=== PATIENT | female | born 1985 | race African-American/Black ===

== ENCOUNTER 2016-03-22 09:41 | Emergency (ER) | payer OTHER ==
[~2016-03-22] VITALS: Ht 167.6 cm; Wt 109.8 kg
[~2016-03-22 09:41] MED LIST: ACET-704 PO; BENZ100C PO; CYCL10TA2 PO; DICY10CA3 PO; IBUP200T58 PO; MAGN2400 PO; NAPR220T70 PO; NAPR375T3 PO; ONDA4TAB10 SL; PRED50TA PO; PROAIR RESPICL90 MCG IH; WARF10TA PO
[2016-03-22] MEDS ORDERED: IBUPROFEN 800 MG TABLET. PO ONE (10:15)
[2016-03-22] MEDS ORDERED: ALBUTEROL SULFATE 2.5 MG/3 ML NEBU. NEB ONE (10:30)
--- NOTE | 2016-03-22 10:45 | EKG ---
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
--- NOTE | 2016-03-22 10:47 | RAD ---
Exam performed: One view chest. Indication: cough, fever Date of Service: 03/22/2016 12:14 PM Comparison: Chest from 02/24/16. Single AP upright portable view chest findings: Cardiomediastinal silhouette is within limits of normal. No acute infiltrates, effusion or pneumothorax is detected. The bony structures are normal. Impression: No acute cardiopulmonary process is detected.
[2016-03-22 11:01] LABS: NEGATIVE OBC STREP NEG; POSITIVE OBC STREP POS
[2016-03-22 11:06] LABS: OBC FLU VALID
[2016-03-22 11:44] LABS: NEG OBC UR NEG; POS OBC UR POS
[2016-03-22 11:48] LABS: BILIRUBIN,URINE NEGATIVE (NEG); GLUCOSE,URINE NEGATIVE (NEG); NITRITE,URINE NEGATIVE (NEG); PROTEIN,URINE NEGATIVE (NEG-TRACE)
[2016-03-22 11:59] LABS: BACTERIA,URINE 0 /HPF (0-FEW); RBC,URINE OCC /HPF (0-2); SQUAMOUS EPITHELIAL CELL,UR MANY /LPF; WBC,URINE 0 /HPF (0-4)
--- NOTE | 2016-03-22 12:06 | PHYS DOC ---
Past Medical History Past Medical History: Bronchitis, Other Additional Past Medical Histor: heart murmur, lung "blood clots" Past Surgical History: Additional Information: Quit 03/21/16 Alcohol Use: Occasionally Drug Use: None Adult General Chief Complaint Chief Complaint: COUGH [facility] HPI Patient is a 30 year old female who reports was seen here two weeks ago for bronchitis and was feeling better and then symptoms started to return two days ago. C/o cough, body aches, fever, nasal congestion and sore throat. No interventions prior to arrival. Review of Systems Review of Systems Constitutional: Intermittent fever two days. Eyes: Denies change in visual acuity, redness, or eye pain HENT: Nasal congesiton, sore throat two days Respiratory: Denies shortness of breath. COugh Cardiovascular: No additional information not addressed in HPI [] GI: Denies abdominal pain, nausea, vomiting, bloody stools or diarrhea : Denies dysuria or hematuria Musculoskeletal: Denies back pain or joint pain Integument: Denies rash or skin lesions Neurologic: Denies headache, focal weakness or sensory changes Endocrine: Denies polyuria or polydipsia [] Current Medications Current Medications Current Medications Medications (Trade) Dose Ordered Sig/Ryley Start Time Stop Time Status Last Admin Dose Admin Albuterol Sulfate (Ventolin Neb Soln) 2.5 mg 1X ONCE 03/22/16 10:30 03/22/16 10:31 DC 03/22/16 10:45 2.5 MG Ibuprofen (Motrin) 800 mg 1X ONCE 03/22/16 10:15 03/22/16 10:17 DC 03/22/16 10:54 800 MG Allergies Allergies Allergies Coded Allergies Type Severity Reaction Last Updated Verified No Known Drug Allergies 06/07/13 No Physical Exam Physical Exam Constitutional: Well developed, well nourished, no acute distress, non-toxic appearance. HENT: Normocephalic, atraumatic, bilateral external ears normal, no oral exudates. Clear nasal drainage bilateral nares. Oropharynx erythematous without exudates. Eyes: PERRLA, EOMI, conjunctiva normal, no discharge. Neck: Normal range of motion, no tenderness, supple, no stridor. Cardiovascular:Heart rate regular rhythm, no murmur Lungs & Thorax: Bilateral breath sounds clear to auscultation Abdomen: Bowel sounds normal, soft, no tenderness, no masses, no pulsatile masses. Skin: Warm, dry, no erythema, no rash. Back: No tenderness, no CVA tenderness. Extremities: No tenderness, no cyanosis, no clubbing, ROM intact, no edema. Neurologic: Alert and oriented X 3, normal motor function, normal sensory function, no focal deficits noted. Psychologic: Affect normal, judgement normal, mood normal. [] Current Patient Data Vital Signs Vital Signs Date Time Temp Pulse Resp B/P Pulse Ox O2 Delivery O2 Flow Rate FiO2 03/22/16 12:14 114 18 111/65 95 Room Air 03/22/16 11:27 100.2 100.2 Lab Values Laboratory Tests Test 03/22/16 10:29 03/22/16 11:29 Influenza Type A Antigen Negative (NEGATIVE) Influenza Type B Antigen Negative (NEGATIVE) Group A Streptococcus Rapid Negative (NEGATIVE) Urine Collection Type Unknown Urine Color Yellow Urine Clarity Cloudy Urine pH 6.0 Urine Specific [place] 1.025 Urine Protein Negativemg/dL (NEG-TRACE) Urine Glucose (UA) Negativemg/dL (NEG) Urine Ketones (Stick) Negativemg/dL (NEG) Urine Blood Trace (NEG) Urine Nitrite Negative (NEG) Urine Bilirubin Negative (NEG) Urine Urobilinogen Dipstick 1.0mg/dL (0.2 mg/dL) Urine Leukocyte Esterase Negative (NEG) Urine RBC Occ/HPF (0-2) Urine WBC 0/HPF (0-4) Urine Squamous Epithelial Cells Many/LPF Urine Bacteria 0/HPF (0-FEW) Urine Test Negative (NEG) EKG EKG [] Radiology/Procedures Radiology/Procedures [] Impressions: 1. Bronchitis 2. Viral illness Course & Med Decision Making Course & Med Decision Making Pertinent Labs and Imaging studies reviewed. (See chart for details) Temp 100.0 at discharge, HR 107, RA sat 96%. Flu, strep, Xray, UA negative for acute findings. Cough improved with neb tx. Williams Disclaimer Williams Disclaimer This electronic medical record was generated, in whole or in part, using a voice recognition dictation system. Departure Departure Impression: Primary Impression: Bronchitis, acute Disposition: 01 HOME, SELF-CARE Condition: STABLE Referrals: UNKNOWN PCP NAME (PCP) Patient Instructions: Acute Bronchitis, [id number]-Pvyu Additional Instructions: Take all medication as prescribed. Follow up with primary doctor in 1-2 days. Return if problems or concerns Scripts Albuterol Sulfate (Proair Hfa Inhaler)8.5 Gm Hfa.aer.ad1 Puff INH PRN Q6HRS PRN wheezing 7 Days Ref 0 Prov:DOMINGO JACK APRN 03/22/16 Guaifenesin/Codeine Phosphate (Guaifenesin-Codeine Syrup)118 Ml Liquid5 Ml PO Q6HRS #120 ML Prov:DOMINGO JACK APRN 03/22/16 Benzonatate (Tessalon Perle)100 Mg Capsule1 Cap PO TID #21 CAP Prov:DOMINGO JACK APRN 03/22/16 DOMINGO JACK APRN Mar 22, 2016 12:06
[2016-03-22 12:14] VITALS: BP 111/65
[2016-03-22] MEDS ORDERED: BENZ100C PO (12:14)
[2016-03-22] MEDS ORDERED: GUAI118L13 PO (12:14)
[2016-03-22] MEDS ORDERED: PROAIR HFA8.5 GM INH (12:37)
== END 2016-03-22 12:37 | disposition home or self-care (01) ==
LOC: ER 09:41
DX: J20.9 Acute bronchitis, unspecified (principal); Z87.891 Personal history of nicotine dependence
CPT/HCPCS: 71010; 81001; 81025; 87070; 87804; 87880; 93005; 94640; 99285-25

== ENCOUNTER 2016-10-26 07:50 | Emergency (ER) | payer OTHER ==
[~2016-10-26] VITALS: Ht 170.2 cm; Wt 113.4 kg
[~2016-10-26 07:50] MED LIST changes: +GUAI118L13 PO; +NAPR-695 PO; -NAPR375T3 PO; +PROAIR HFA8.5 GM INH; -WARF10TA PO; +WARF10TA45 PO
[2016-10-26 08:41] VITALS: BP 156/99
--- NOTE | 2016-10-26 09:00 | PHYS DOC ---
Past Medical History Past Medical History: Bronchitis, Other Additional Past Medical Histor: heart murmur, lung "blood clots" Past Surgical History: Alcohol Use: Occasionally Drug Use: None Adult General Chief Complaint Chief Complaint: SORE THROAT HPI HPI Patient is a 31 year old female presents to the emergency department with a history of sore throat, congestion with a yellow to mucus productive cough. Patient also states she has brown vaginal discharge, however finished her menstrual cycle last Monday. She denies fever, chills, nausea vomiting and diarrhea for me. Patient states she thinks she is dehydrated because every time she goes outside she gets light headed and dizzy and feels like she is going to pass out. She denies passing out. Patient denies concerns for STD. Review of Systems Review of Systems Constitutional: Denies fever or chills [] Eyes: Denies change in visual acuity, redness, or eye pain [] HENT: nasal congestion and sore throat [] Respiratory: cough denies shortness of breath [] Cardiovascular: No additional information not addressed in HPI [] GI: Denies abdominal pain, nausea, vomiting, bloody stools or diarrhea [] : Denies dysuria or hematuria. C/o vaginal discharge, brown Musculoskeletal: Denies back pain or joint pain [] Integument: Denies rash or skin lesions [] Neurologic: Denies headache, focal weakness or sensory changes [] Endocrine: Denies polyuria or polydipsia [] Allergies Allergies Allergies Coded Allergies Type Severity Reaction Last Updated Verified No Known Drug Allergies 06/07/13 No Physical Exam Physical Exam Constitutional: Well developed, well nourished, no acute distress, non-toxic appearance. [] HENT: Normocephalic, atraumatic, bilateral external ears normal, oropharynx moist, no oral exudates, nose normal. Bilateral TM normal. throat with redness, no post nasal drip noted, no anterior cervical adenopathy noted. Eyes: PERRLA, EOMI, conjunctiva normal, no discharge. [] Neck: Normal range of motion, no tenderness, supple, no stridor. [] Cardiovascular:Heart rate regular rhythm, no murmur [] Lungs & Thorax: Bilateral breath sounds clear to auscultation [] Skin: Warm, dry, no erythema, no rash. [] Back: No tenderness Extremities: No tenderness, no cyanosis, no clubbing, ROM intact, no edema. [] Neurologic: Alert and oriented X 3, normal motor function, normal sensory function, no focal deficits noted. [] Psychologic: Affect normal, judgement normal, mood normal. [] Pelvic exam completed with Amy REILLY at bedside. Speculum exam with yellow/white discharge noted in the vault. Manual exam no CMT no adnexal tenderness noted. Current Patient Data Vital Signs Vital Signs Date Time Temp Pulse Resp B/P (MAP) Pulse Ox O2 Delivery O2 Flow Rate FiO2 10/26/16 08:41 97.9 65 16 98 Room Air 97.9 Lab Values Laboratory Tests Test 10/26/16 08:22 10/26/16 09:15 POC Urine HCG, Qualitative Hcg negative (Negative) Urine Collection Type Unknown Urine Color Yellow Urine Clarity Clear Urine pH 5.5 Urine Specific [place] 1.020 Urine Protein Negative mg/dL (NEG-TRACE) Urine Glucose (UA) Negative mg/dL (NEG) Urine Ketones (Stick) Negative mg/dL (NEG) Urine Blood Negative (NEG) Urine Nitrite Negative (NEG) Urine Bilirubin Negative (NEG) Urine Urobilinogen Dipstick 0.2 mg/dL (0.2 mg/dL) Urine Leukocyte Esterase Negative (NEG) Urine RBC Occ /HPF (0-2) Urine WBC 1-4 /HPF (0-4) Urine Squamous Epithelial Cells Many /LPF Urine Amorphous Sediment Present /HPF Urine Bacteria Few /HPF (0-FEW) Microbiology 10/26/16 Wet Prep - Final, Complete EKG EKG [] Radiology/Procedures Radiology/Procedures [] Course & Med Decision Making Course & Med Decision Making Pertinent Labs and Imaging studies reviewed. (See chart for details) Patient's urine was negative for urinary tract infection, and . Patient 's wet prep was positive for bacterial vaginosis. Patient will be placed on Flagyl. She'll be recommended to not drink any alcohol with this medication. She 'll also be placed on Augmentin for an upper respiratory infection. She'll be discharged home in stable condition recommended Tylenol or ibuprofen for fever chills or generalized body aches and discomfort also recommended patient to drink plenty of fluids such as water Gatorade or propel. Patient will be discharged home in stable condition signs symptoms to return back to emergency department as been provided. Patient agrees with discharge instructions treatment regimens and follow-up recommendations. All questions and concerns been answered at the patient's bedside. [] Dragon Disclaimer Dragon Disclaimer This electronic medical record was generated, in whole or in part, using a voice recognition dictation system. Departure Departure Impression: Primary Impression: Bacterial vaginosis Additional Impression: Upper respiratory infection Disposition: HOME, SELF-CARE Condition: STABLE Referrals: NO PCP (PCP) Patient Instructions: Bacterial Vaginosis, Bhgk-co-Pupn, Upper Respiratory Infection, Adult, [id number] Additional Instructions: Activity as tolerated. Tylenol or ibuprofen for fever chills or generalized body aches and discomfort. Antibiotics as prescribed. Do not drink alcohol and taking the Flagyl as this will cause severe abdominal pain and discomfort. Drink plenty of fluids such as water Gatorade or propel. Follow-up to primary care physician next 7-10 days. Return back to emergency prior signs symptoms become worse. Scripts Metronidazole (FLAGYL) 500 Mg Tablet 1 TAB PO BID, #14 TAB Prov: ANNMARIE DIEGO APRN 10/26/16 Amoxicillin/Potassium Clav (AUGMENTIN 875-125 TABLET) 1 Each Tablet 1 TAB PO BID, #20 TAB Prov: ANNMARIE DIEGO APRN 10/26/16 Problem Qualifiers Additional Impression: Upper respiratory infection URI type: unspecified URI Qualified Codes: J06.9 - Acute upper respiratory infection, unspecified ANNMARIE DIEGO APRN Oct 26, 2016 09:00
[2016-10-26 09:35] LABS: BILIRUBIN,URINE NEGATIVE (NEG); GLUCOSE,URINE NEGATIVE (NEG); NITRITE,URINE NEGATIVE (NEG); PH,URINE 5.5; PROTEIN,URINE NEGATIVE (NEG-TRACE); UROBILINOGEN,URINE 0.2 mg/dL (0.2 mg/dL)
[2016-10-26 10:03] LABS: BACTERIA,URINE FEW /HPF (0-FEW); RBC,URINE OCC /HPF (0-2); SQUAMOUS EPITHELIAL CELL,UR MANY /LPF
[2016-10-26] MEDS ORDERED: AMOX1TAB61 PO (10:19)
[2016-10-26] MEDS ORDERED: METR500T PO (10:19)
== END 2016-10-26 10:27 | disposition home or self-care (01) ==
LOC: ER 07:50
DX: N76.0 Acute vaginitis (principal); J06.9 Acute upper respiratory infection, unspecified
CPT/HCPCS: 81001; 81025; 87491; 87591; 99284; Q0111

== ENCOUNTER 2017-06-11 23:09 | Emergency (ER) | payer OTHER ==
[2017-06-11] MEDS ORDERED: LIDO:MAALOX:DONNATAL 1:1:1 15 ML SINGLE DOSE (23:22)
[2017-06-11] MEDS: FAMOTIDINE 20 MG TABLET. PO (23:24)
[2017-06-11] MEDS: ONDANSETRON ODT 4 MG TAB.RAPDIS. PO (23:25)
[2017-06-11] MEDS: LIDO:MAALOX 1:1 20 ML SINGLE DOSE. SWSW (23:46)
== END 2017-06-12 00:03 | disposition home or self-care (01) ==
LOC: ER 06-12 00:03
DX: K21.0 Gastro-esophageal reflux disease with esophagitis (principal); R07.89 Other chest pain; R12 Heartburn; Z86.718 Personal history of other venous thrombosis and embolism
CPT/HCPCS: 99284; Q0162

== ENCOUNTER 2018-02-07 15:31 | Emergency (ER) | payer OTHER ==
[~2018-02-07] VITALS: Ht 167.6 cm; Wt 108.9 kg
[~2018-02-07 15:31] MED LIST changes: +ALBU2.5V8 INH; +AMOX1TAB61 PO; +FAMO-63 PO; +METO10TA81 PO; +METR500T PO; +OMEP20TA63 PO; -PROAIR HFA8.5 GM INH
[2018-02-07] MEDS ORDERED: ASPIRIN 325 MG TABLET PO ONE (16:00)
--- NOTE | 2018-02-07 16:05 | EKG ---
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
--- NOTE | 2018-02-07 16:06 | PHYS DOC ---
Past Medical History Past Medical History: Bronchitis, GERD, Other Additional Past Medical Histor: heart murmur, lung "blood clots" Past Surgical History: Alcohol Use: Occasionally Drug Use: None Adult General Chief Complaint Chief Complaint: CHEST PAIN HPI HPI Patient is a 32 year old female with history of PEs currently not on blood thinners who presents today with multiple complaints. Patient states a week ago she noted a blood clot that migrated from her right lateral neck into her right inner cheek and busted. She states since then she's had intermittent episodes of 7 out of 10 sharp left sided chest pain nonradiating. Patient denies anything exacerbating or making her chest pain better. She is also complaining of throbbing intermittent 7 out of 10 left-sided headaches for 1 week. Patient states at some point she felt another blood clot in her chest that moved to her stomach, this happened sometime last week. She is not sure when exactly. Patient denies any shortness of breath. Review of Systems Review of Systems Constitutional: Denies fever or chills [] Eyes: Denies change in visual acuity, redness, or eye pain [] HENT: Denies nasal congestion or sore throat [] Respiratory: Denies cough or shortness of breath [] Cardiovascular: Reports chest pain GI: Denies abdominal pain, nausea, vomiting, bloody stools or diarrhea [] : Denies dysuria or hematuria [] Musculoskeletal: Denies back pain or joint pain [] Integument: Denies rash or skin lesions [] Neurologic: Reports headache, denies focal weakness or sensory changes [] ] All other systems were reviewed and found to be within normal limits, except as documented in this note. Current Medications Current Medications Current Medications Medications (Trade) Dose Ordered Sig/[facility] Start Time Stop Time Status Last Admin Dose Admin Aspirin (Jorge Aspirin) 325 mg 1X ONCE 02/07/18 16:00 02/07/18 16:01 DC 02/07/18 16:20 325 MG Info (CONTRAST GIVEN -- Rx MONITORING) 1 each PRN DAILY PRN 02/07/18 17:00 02/07/18 19:02 DC Iohexol (Omnipaque 300 Mg/ml) 100 ml 1X ONCE 02/07/18 17:00 02/07/18 17:01 DC 02/07/18 17:04 100 ML Allergies Allergies Allergies Coded Allergies Type Severity Reaction Last Updated Verified No Known Drug Allergies 4/18/14 No Physical Exam Physical Exam Constitutional: Well developed, well nourished, no acute distress, non-toxic appearance. [] HENT: Normocephalic, atraumatic, bilateral external ears normal, oropharynx moist, no oral exudates, nose normal. [] Eyes: PERRLA, EOMI, conjunctiva normal, no discharge. [] Neck: Normal range of motion, no tenderness, supple, no stridor. [] Cardiovascular:Heart rate regular rhythm, no murmur [] Lungs & Thorax: Bilateral breath sounds clear to auscultation [] Abdomen: Bowel sounds normal, soft, no tenderness, no masses, no pulsatile masses. [] Skin: Warm, dry, no erythema, no rash. [] Back: No tenderness, no CVA tenderness. [] Extremities: No tenderness, no cyanosis, no clubbing, ROM intact, no edema. [] Neurologic: Alert and oriented X 3, normal motor function, normal sensory function, no focal deficits noted. [] Psychologic: Affect normal, judgement normal, mood normal. [] Current Patient Data Vital Signs Vital Signs Date Time Temp Pulse Resp B/P (MAP) Pulse Ox O2 Delivery O2 Flow Rate FiO2 02/07/18 18:26 65 16 129/74 (92) 99 Room Air 02/07/18 15:55 98.3 98.3 Lab Values Laboratory Tests Test 02/07/18 16:24 02/07/18 16:34 02/07/18 16:40 White Blood Count 8.6 x10^3/uL (4.0-11.0) Red Blood Count 4.13 x10^6/uL (3.50-5.40) Hemoglobin 12.2 g/dL (12.0-15.5) Hematocrit 34.2 % (36.0-47.0) L Mean Corpuscular Volume 83 fL (79-100) Mean Corpuscular Hemoglobin 30 pg (25-35) Mean Corpuscular Hemoglobin Concent 36 g/dL (31-37) Red Cell Distribution Width 13.3 % (11.5-14.5) Platelet Count 467 x10^3/uL (140-400) H Neutrophils (%) (Auto) 41 % (31-73) Lymphocytes (%) (Auto) 51 % (24-48) H Monocytes (%) (Auto) 8 % (0-9) Eosinophils (%) (Auto) 1 % (0-3) Basophils (%) (Auto) 0 % (0-3) Neutrophils # (Auto) 3.5 x10^3uL (1.8-7.7) Lymphocytes # (Auto) 4.4 x10^3/uL (1.0-4.8) Monocytes # (Auto) 0.6 x10^3/uL (0.0-1.1) Eosinophils # (Auto) 0.1 x10^3/uL (0.0-0.7) Basophils # (Auto) 0.0 x10^3/uL (0.0-0.2) Prothrombin Time 12.3 SEC (11.7-14.0) Prothrombin Time INR 0.9 (0.8-1.1) PTT 23 SEC (24-38) L Sodium Level 142 mmol/L (136-145) Potassium Level 4.0 mmol/L (3.5-5.1) Chloride Level 106 mmol/L (98-107) Carbon Dioxide Level 29 mmol/L (21-32) Anion Gap 7 (6-14) Blood Urea Nitrogen 11 mg/dL (7-20) Creatinine 0.9 mg/dL (0.6-1.0) Estimated GFR (Cockcroft-Gault) 88.4 BUN/Creatinine Ratio 12 (6-20) Glucose Level 102 mg/dL (70-99) H Calcium Level 9.4 mg/dL (8.5-10.1) Magnesium Level 1.7 mg/dL (1.8-2.4) L Total Bilirubin 0.3 mg/dL (0.2-1.0) Aspartate Amino Transferase (AST) 18 U/L (15-37) Alanine Aminotransferase (ALT) 24 U/L (14-59) Alkaline Phosphatase 73 U/L (46-116) Troponin I Quantitative < 0.017 ng/mL (0.000-0.055) XK-Uos-L-Type Natriuretic Peptide 60 pg/mL (0-124) Total Protein 7.9 g/dL (6.4-8.2) Albumin 3.7 g/dL (3.4-5.0) Albumin/Globulin Ratio 0.9 (1.0-1.7) L Thyroid Stimulating Hormone (TSH) 0.561 uIU/mL (0.358-3.74) Urine Collection Type Unknown Urine Color Yellow Urine Clarity Clear Urine pH 7.5 Urine Specific [place] 1.025 Urine Protein Negative mg/dL (NEG-TRACE) Urine Glucose (UA) Negative mg/dL (NEG) Urine Ketones (Stick) Negative mg/dL (NEG) Urine Blood Negative (NEG) Urine Nitrite Negative (NEG) Urine Bilirubin Negative (NEG) Urine Urobilinogen Dipstick 1.0 mg/dL (0.2 mg/dL) Urine Leukocyte Esterase Small (NEG) Urine RBC Occ /HPF (0-2) Urine WBC 1-4 /HPF (0-4) Urine Squamous Epithelial Cells Mod /LPF Urine Bacteria Moderate /HPF (0-FEW) Urine Mucus Mod /LPF Urine Opiates Screen Neg (NEG) Urine Methadone Screen Neg (NEG) Urine Barbiturates Neg (NEG) Urine Phencyclidine Screen Neg (NEG) Urine Amphetamine/Methamphetamine Neg (NEG) Urine Benzodiazepines Screen Neg (NEG) Urine Cocaine Screen Neg (NEG) Urine Cannabinoids Screen Neg (NEG) Urine Ethyl Alcohol Neg (NEG) POC Urine HCG, Qualitative Hcg negative (Negative) Laboratory Tests 02/07/18 16:24 Laboratory Tests 02/07/18 16:24 EKG EKG 15:[address] Odell sinus rhythm heart rate 74 no STEMI[] Radiology/Procedures Radiology/Procedures []PROCEDURE: CT ANGIOGRAPHY CHEST Examination: CT ANGIOGRAPHY CHEST History: CP, SOA, HX PE, QFUK110 100ML, PRIOR SENT Comparison/Correlation: 12/29/2015 CTA of the chest Findings: Axial images of chest were obtained following IV contrast. MIP reformatted images were obtained. Sagittal and coronal reformatted images provided. Pulmonary arterial vasculature is normal with no thromboembolic disease. Thoracic aorta is unremarkable. No infiltrates or effusions. No enlarged thoracic lymph nodes. Slight emphysematous involvement of the upper lung shields noted. Bony structures are unremarkable. Partially visualized upper abdomen is unremarkable. Impression: No pulmonary arterial thromboembolic disease. Previously seen lower lobe pulmonary arterial branch thrombus embolic disease has resolved in the interval. No infiltrate. Slight emphysematous involvement of the upper lung shields. Electronically signed by: Casey Henderson MD (02/07/2018 5:14 PM) [facility] DICTATED and SIGNED BY: GHASSAN AIKEN MD DATE: 02/07/181706 PROCEDURE: PORTABLE CHEST 1V PORTABLE CHEST 1V History: ER PATIENT. INTERMITENT ATRAUMATIC CHEST PAIN X1 WEEK. PRIOR XRAY. Comparison: March 22, 2016. Cardiomediastinal silhouette: Not grossly enlarged. Lungs: No focal airspace consolidation. Pleura: No evidence of pleural effusion. Pneumothorax: None visualized Support Devices: None. Impression: No acute radiographic findings. Electronically signed by: Luis Hi MD (02/07/2018 4:40 PM) [facility] DICTATED and SIGNED BY: LUIS HI MD DATE: 02/07/18 1515 PROCEDURE: CT HEAD WO CONTRAST Examination: CT HEAD WO CONTRAST History: HEADACHE, PRIOR SENT Comparison/Correlation: 06/07/2013 CT head without contrast Findings: Axial images of the head were obtained without contrast. Ventricles are normal size. No intracranial hemorrhage, shift, or mass effect. Globes and optic nerves are unremarkable. Visualized paranasal sinuses are unremarkable. Impression: Normal CT head without contrast. Electronically signed by: Casey Henderson MD (02/07/2018 5:07 PM) [facility] DICTATED and SIGNED BY: GHASSAN AIKEN MD DATE: 02/07/181705 Course & Med Decision Making Course & Med Decision Making Pertinent Labs and Imaging studies reviewed. (See chart for details) This is a 32-year-old female patient presenting to the ED today with with chest pain and a headache intermittently for a week. See history of present illness for further information. Has history of PEs. Currently not on blood thinners. EKG was negative for any acute findings, labs are negative for any acute findings. CT of the head is negative, CT chest is negative. Patient was reassured. She was discharged to home to follow up with her own PCP in the course of this week or next week. Encouraged to consider smoking cessation. Heart score 2 Dragon Disclaimer Dragon Disclaimer This electronic medical record was generated, in whole or in part, using a voice recognition dictation system. Departure Departure Impression: Primary Impression: Chest pain Additional Impressions: Headache Smoking addiction Disposition: HOME, SELF-CARE Condition: STABLE Referrals: NO PCP (PCP) ARCHIE SUTTON MD follow up next week Patient Instructions: Chest Pain (Nonspecific), Cohd-ld-Aovs, General Headache Without Cause, Smoking Cessation Additional Instructions: You were evaluated in the emergency room, you do not have any blood clot in your chest or head. You can take Tylenol or Motrin as needed for your pain. 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 Come back to the ED at any point symptoms worsen. Consider smoking cessation Problem Qualifiers Primary Impression: Chest pain Chest pain type: unspecified Qualified Codes: R07.9 - Chest pain, unspecified Additional Impressions: Headache Headache type: unspecified Headache chronicity pattern: unspecified pattern Intractability: not intractable Qualified Codes: R51 - Headache HERNESTO QUIJANO PLATFORM CONSULTANT Feb 07, 2018 16:06
[2018-02-07 16:32] LABS: BASO % 0 % (0-3); EOS # 0.1 x10^3/uL (0.0-0.7); EOS % 1 % (0-3); HEMATOCRIT 34.2 % (36.0-47.0); HEMOGLOBIN 12.2 g/dL (12.0-15.5); LYMPH # 4.4 x10^3/uL (1.0-4.8); LYMPH % 51 % (24-48); MEAN CORPUSCULAR HEMOGLOBIN 30 pg (25-35); MEAN CORPUSCULAR HGB CONC 36 g/dL (31-37); MEAN CORPUSCULAR VOLUME 83 fL (79-100); MONO # 0.6 x10^3/uL (0.0-1.1); MONO % 8 % (0-9); NEUT # 3.5 x10^3uL (1.8-7.7); NEUT % 41 % (31-73); PLATELET COUNT 467 x10^3/uL (140-400); RED BLOOD COUNT 4.13 x10^6/uL (3.50-5.40); RED CELL DISTRIBUTION WIDTH 13.3 % (11.5-14.5); WHITE BLOOD COUNT 8.6 x10^3/uL (4.0-11.0)
[2018-02-07 16:42] LABS: PROTHROMBIN TIME PATIENT 12.3 SEC (11.7-14.0)
[2018-02-07 16:44] LABS: CALCIUM 9.4 mg/dL (8.5-10.1); CREATININE 0.9 mg/dL (0.6-1.0); GFR 88.4
--- NOTE | 2018-02-07 16:45 | RAD ---
PORTABLE CHEST 1V History: ER PATIENT. INTERMITENT ATRAUMATIC CHEST PAIN X1 WEEK. PRIOR XRAY. Comparison: March 22, 2016. Cardiomediastinal silhouette: Not grossly enlarged. Lungs: No focal airspace consolidation. Pleura: No evidence of pleural effusion. Pneumothorax: None visualized Support Devices: None. Impression: No acute radiographic findings. Electronically signed by: Luis Hi MD (02/07/2018 4:40 PM) [facility]
[2018-02-07 16:49] LABS: ALBUMIN 3.7 g/dL (3.4-5.0); ALBUMIN/GLOBULIN RATIO 0.9 (1.0-1.7); MAGNESIUM 1.7 mg/dL (1.8-2.4); TOTAL BILIRUBIN 0.3 mg/dL (0.2-1.0); TOTAL PROTEIN 7.9 g/dL (6.4-8.2)
[2018-02-07 16:53] LABS: BILIRUBIN,URINE NEGATIVE (NEG); CLARITY,URINE CLEAR; COLOR,URINE YELLOW; NITRITE,URINE NEGATIVE (NEG); PH,URINE 7.5; PROTEIN,URINE NEGATIVE (NEG-TRACE)
[2018-02-07] MEDS ORDERED: IOHEXOL 300 MG/ML 100ML VIAL. IV ONE (17:00)
[2018-02-07] MEDS ORDERED: CONTRAST GIVEN. MC PRN (17:00)
[2018-02-07 17:02] LABS: BACTERIA,URINE MODERATE /HPF (0-FEW); RBC,URINE OCC /HPF (0-2); SQUAMOUS EPITHELIAL CELL,UR MOD /LPF
[2018-02-07 17:05] LABS: BARBITURATES NEG (NEG); BENZODIAZEPINES NEG (NEG); CANNABINOIDS NEG (NEG); COCAINE NEG (NEG); METHADONE NEG (NEG); OPIATES NEG (NEG); PHENCYCLIDINE NEG (NEG)
[2018-02-07 17:06] LABS: AMPHETAMINE/METHAMPHETAMINE NEG (NEG)
--- NOTE | 2018-02-07 17:10 | RAD ---
Examination: CT HEAD WO CONTRAST History: HEADACHE, PRIOR SENT Comparison/Correlation: 06/07/2013 CT head without contrast Findings: Axial images of the head were obtained without contrast. Ventricles are normal size. No intracranial hemorrhage, shift, or mass effect. Globes and optic nerves are unremarkable. Visualized paranasal sinuses are unremarkable. Impression: Normal CT head without contrast. Electronically signed by: Casey Henderson MD (02/07/2018 5:07 PM) [facility]
--- NOTE | 2018-02-07 17:18 | RAD ---
Examination: CT ANGIOGRAPHY CHEST History: CP, SOA, HX PE, [id number] 100ML, PRIOR SENT Comparison/Correlation: 12/29/2015 CTA of the chest Findings: Axial images of chest were obtained following IV contrast. MIP reformatted images were obtained. Sagittal and coronal reformatted images provided. Pulmonary arterial vasculature is normal with no thromboembolic disease. Thoracic aorta is unremarkable. No infiltrates or effusions. No enlarged thoracic lymph nodes. Slight emphysematous involvement of the upper lung shields noted. Bony structures are unremarkable. Partially visualized upper abdomen is unremarkable. Impression: No pulmonary arterial thromboembolic disease. Previously seen lower lobe pulmonary arterial branch thrombus embolic disease has resolved in the interval. No infiltrate. Slight emphysematous involvement of the upper lung shields. Electronically signed by: Casey Henderson MD (02/07/2018 5:14 PM) [facility]
[2018-02-07 18:26] VITALS: BP 129/74
== END 2018-02-07 18:50 | disposition home or self-care (01) ==
LOC: ER 15:31
DX: R07.89 Other chest pain (principal); R51 Headache; K21.9 Gastro-esophageal reflux disease without esophagitis; F17.200 Nicotine dependence, unspecified, uncomplicated
CPT/HCPCS: 36415; 70450; 71045; 71275; 80053; 80307; 81001; 81025; 83735; 83880; 84443; 84484; 85025; 85610; 85730; 87086; 93005; 99284; Q9967

== ENCOUNTER 2018-06-04 11:48 | Emergency (ER) | payer OTHER ==
[~2018-06-04] VITALS: Ht 167.6 cm; Wt 108.6 kg
--- NOTE | 2018-06-04 13:20 | RAD ---
EXAM: Left lower extremity venous Doppler sonogram; left upper extremity venous Doppler sonogram. HISTORY: Swelling and pain. TECHNIQUE: Balderrama scale and color Doppler sonographic evaluation of the left upper and lower extremity veins with spectral waveform analysis was performed. FINDINGS: There is normal color flow, normal compressibility and there are normal spectral waveforms in the left upper and lower extremity veins. IMPRESSION: No Doppler evidence of lower or upper extremity deep venous thrombosis. Electronically signed by: Neyda Wong MD (06/04/2018 1:17 PM) [place] [id number]
--- NOTE | 2018-06-04 13:58 | RAD ---
CHEST AP ONLY Clinical Indication: LEFT SIDED CHEST PAIN WITH INSPIRATION Comparison: 02/07/2018 portable chest x-ray exam. Findings: Portable upright frontal view of the chest was obtained. The cardiomediastinal silhouette is normal. Lungs are clear. There is no pneumothorax. No pleural effusion is appreciated. No acute bone abnormality. IMPRESSION: No acute cardiopulmonary process. Electronically signed by: Casey Henderson MD (06/04/2018 1:55 PM) [id number]
--- NOTE | 2018-06-04 15:23 | PHYS DOC ---
Past Medical History Past Medical History: Bronchitis, GERD, Other Additional Past Medical Histor: heart murmur, lung "blood clots" Past Surgical History: Alcohol Use: Occasionally Drug Use: None Adult General Chief Complaint Chief Complaint: UPPER EXTREMITY PAIN [facility] HPI Patient is a 32 year old female who presents to the ED today complaining of left upper extremity swelling no pain that she noted yesterday, patient is concerned she could have a DVT on the left upper extremity. She states she has history of PE years ago and is not longer on any blood thinners. She is also complaining of chronic left lower extremity swelling, she states this originated from an injury she sustained as a child. She is also requesting that to be checked out to make sure she does not have any DVT to the left lower extremity. She is also complaining of right hand pain specifically around her fingers, no known injury, no alleviating or exacerbating factors to her pain. Also complaining coughs. Review of Systems Review of Systems Constitutional: Denies fever or chills [] Eyes: Denies change in visual acuity, redness, or eye pain [] HENT: Denies nasal congestion or sore throat [] Respiratory: Reports cough, denies shortness of breath [] Cardiovascular: No additional information not addressed in HPI [] GI: Denies abdominal pain, nausea, vomiting, bloody stools or diarrhea [] : Denies dysuria or hematuria [] Musculoskeletal: Reports left upper extremity swelling, right hand pain, chronic left lower extremity swelling Integument: Denies rash or skin lesions [] Neurologic: Denies headache, focal weakness or sensory changes [] All other systems were reviewed and found to be within normal limits, except as documented in this note. Allergies Allergies Allergies Coded Allergies Type Severity Reaction Last Updated Verified No Known Drug Allergies 06/07/13 No Physical Exam Physical Exam Constitutional: Well developed, well nourished, no acute distress, non-toxic appearance. [] HENT: Normocephalic, atraumatic, bilateral external ears normal, oropharynx moist, no oral exudates, nose normal. [] Eyes: PERRLA, EOMI, conjunctiva normal, no discharge. [] Neck: Normal range of motion, no tenderness, supple, no stridor. [] Cardiovascular:Heart rate regular rhythm, no murmur [] Lungs & Thorax: Bilateral breath sounds clear to auscultation [] Abdomen: Bowel sounds normal, soft, no tenderness, no masses, no pulsatile masses. [] Skin: Warm, dry, no erythema, no rash. [] Back: No tenderness, no CVA tenderness. [] Extremities: No tenderness, no cyanosis, no clubbing, ROM intact, Homans sign negative bilaterally. No obvious edema noted to bilateral upper extremities. +2 bilateral upper and lower extremity pulses. Neurologic: Alert and oriented X 3, normal motor function, normal sensory function, no focal deficits noted. [] Psychologic: Affect normal, judgement normal, mood normal. [] Current Patient Data Vital Signs Vital Signs Date Time Temp Pulse Resp B/P (MAP) Pulse Ox O2 Delivery O2 Flow Rate FiO2 06/04/18 13:51 72 16 108/69 (82) 96 Room Air 06/04/18 12:00 98.4 98.4 EKG EKG [] Radiology/Procedures Radiology/Procedures [] Course & Med Decision Making Course & Med Decision Making Pertinent Labs and Imaging studies reviewed. (See chart for details) This is a 32-year-old female patient presenting to the ED today requesting to be checked out for DVT to the left and lower extremity, has history of chronic lower extremity swelling from an injury as a child as well as history of PE years ago. She is not on any blood thinners. Also complaining of a cough. Chest x-ray is negative, venous Doppler of the left upper and left lower extremities are negative. Patient was discharged to home. Follow-up with PCP in 1-2 weeks. Dragon Disclaimer Dragon Disclaimer This electronic medical record was generated, in whole or in part, using a voice recognition dictation system. Departure Departure Impression: Primary Impression: Edema of upper extremity Additional Impressions: Lower leg edema Right hand pain Disposition: HOME, SELF-CARE Condition: STABLE Referrals: NO PCP (PCP) Follow-up with your doctor in 1-2 weeks Patient Instructions: Edema, [id number] Additional Instructions: You were evaluated in the emergency room, we did not find any blood clots to the left upper or left lower extremities. Try and ice and elevate the affected areas as you can take [id number] pain relievers as needed. Problem Qualifiers HERNESTO QUIJANO APRN Jun 04, 2018 15:23
[2018-06-04 15:35] VITALS: BP 124/67
== END 2018-06-04 15:40 | disposition home or self-care (01) ==
LOC: ER 11:48
DX: R60.0 Localized edema (principal); M79.641 Pain in right hand; R05 Cough; K21.9 Gastro-esophageal reflux disease without esophagitis
CPT/HCPCS: 71045; 93971; 99284-25

== ENCOUNTER 2018-12-04 00:55 | Emergency (ER) | payer OTHER ==
[~2018-12-04] VITALS: Ht 167.6 cm; Wt 105.2 kg
[2018-12-04 01:00] VITALS: BP 140/90
--- NOTE | 2018-12-04 01:13 | PHYS DOC ---
Past Medical History Past Medical History: Bronchitis, GERD, Other Additional Past Medical Histor: heart murmur, lung "blood clots" Past Surgical History: Alcohol Use: Occasionally Drug Use: None Adult General Chief Complaint Chief Complaint: KNEE INJURY [facility] HPI Patient is a 33-year-old female who presents with complaint of right knee pain and lower back pain after tripping and falling while on some bleachers earlier this evening at about 11:20 PM. She rates pain at a 9 out of 10. She states that pain is worsened with weightbearing on that right knee. She denies any loss of bowel or bladder control. She also denies any saddle anesthesia.[] Review of Systems Review of Systems Constitutional: Denies fever or chills [] Respiratory: Denies cough or shortness of breath [] Cardiovascular: No additional information not addressed in HPI [] Musculoskeletal: Complains of lower back and right knee pain [] Integument: Denies rash or skin lesions [] Neurologic: Denies headache, focal weakness or sensory changes [] Current Medications Current Medications Current Medications Medications (Trade) Dose Ordered Sig/Ryley Start Time Stop Time Status Last Admin Dose Admin Cyclobenzaprine HCl (Flexeril) 10 mg 1X ONCE 12/04/18 02:00 12/04/18 02:01 DC 12/04/18 01:58 10 MG Tramadol HCl (Ultram) 50 mg 1X ONCE 12/04/18 02:00 12/04/18 02:01 DC 12/04/18 01:58 50 MG Allergies Allergies Allergies Coded Allergies Type Severity Reaction Last Updated Verified No Known Drug Allergies 06/07/13 No Physical Exam Physical Exam Constitutional: Well developed, well nourished, no acute distress, non-toxic shanita earance. [] Cardiovascular:Heart rate regular rhythm, no murmur [] Lungs & Thorax: Bilateral breath sounds clear to auscultation [] Skin: Warm, dry, no erythema, no rash. [] Back: There is tenderness to palpation in the bilateral lumbar paraspinal musculature. [] Extremities: Right knee demonstrates diffuse tenderness to palpation. No ligamentous laxity is noted on exam. [] Neurologic: Alert and oriented X 3, no focal deficits noted. [] Current Patient Data Vital Signs Vital Signs Date Time Temp Pulse Resp B/P (MAP) Pulse Ox O2 Delivery O2 Flow Rate FiO2 12/04/18 01:58 19 99 Room Air 12/04/18 01:00 97.9 87 140/90 (107) 97.9 EKG EKG [] Radiology/Procedures Radiology/Procedures [] Impressions: X-ray imaging of the right knee and lumbar spine demonstrate no acute bony abnormalities. Course & Med Decision Making Course & Med Decision Making Pertinent Labs and Imaging studies reviewed. (See chart for details) [] Dragon Disclaimer Dragon Disclaimer This electronic medical record was generated, in whole or in part, using a voice recognition dictation system. Departure Departure Impression: Primary Impression: Contusion of right knee Additional Impression: Low back strain Disposition: HOME, SELF-CARE Condition: STABLE Referrals: UNKNOWN PCP NAME (PCP) Patient Instructions: Contusion, Lumbosacral Strain Scripts Orphenadrine Citrate (ORPHENADRINE CITRATE) 100 Mg Tablet.er 1 TAB PO BID PRN for MUSCLE SPASMS, #14 TAB Prov: BRUNO XIONG Jr. DO 12/04/18 Tramadol Hcl (TRAMADOL HCL) 50 Mg Tablet 50 MG PO Q6HRS PRN for PAIN, #12 TAB Prov: BRUNO XIONG Jr. DO 12/04/18 Problem Qualifiers Primary Impression: Contusion of right knee Encounter type: initial encounter Qualified Codes: S80.01XA - Contusion of right knee, initial encounter Additional Impression: Low back strain Encounter type: initial encounter Qualified Codes: S39.012A - Strain of muscle, fascia and tendon of lower back, initial encounter BRUNO XIONG Jr. DO Dec 04, 2018 01:13
[2018-12-04] MEDS ORDERED: TRAM50TA PO (01:47)
[2018-12-04] MEDS ORDERED: ORPH100T PO (01:47)
[2018-12-04] MEDS ORDERED: CYCLOBENZAPRINE 10 MG TABLET. PO ONE (02:00)
[2018-12-04] MEDS ORDERED: traMADol 50 MG TABLET PO ONE (02:00)
--- NOTE | 2018-12-04 06:20 | RAD ---
Left knee 3 views: Reason for examination: Fell. No acute fracture or dislocation is evident. The bone density is normal. No abnormal periosteal reaction is seen. Joint spaces are maintained. IMPRESSION: No acute abnormality seen at the right knee. Lumbar spine 3 views: The vertebral bodies of the lumbar spine are normally aligned anteriorly and posteriorly. No acute fracture or subluxation is seen. Posterior elements appear to be intact. The intervertebral discs are maintained. No abnormality seen at the sacrum or sacroiliac joints. IMPRESSION: No acute abnormality evident in the lumbar spine. Electronically signed by: Mary Mauricio MD (12/04/2018 6:17 AM) [facility]
== END 2018-12-04 02:25 | disposition home or self-care (01) ==
LOC: ER 00:55
DX: S39.012A Strain of muscle, fascia and tendon of lower back, initial encounter (principal); S80.01XA Contusion of right knee, initial encounter; K21.9 Gastro-esophageal reflux disease without esophagitis; Z98.890 Other specified postprocedural states; W01.0XXA Fall on same level from slipping, tripping and stumbling without subsequent striking against object, initial encounter; Y93.89 Activity, other specified; Y92.89 Other specified places as the place of occurrence of the external cause; Y99.8 Other external cause status
CPT/HCPCS: 72100; 73562; 99284

== ENCOUNTER 2019-03-12 13:55 | Emergency (ER) | payer OTHER ==
[~2019-03-12] VITALS: Ht 170.2 cm; Wt 110.0 kg
[~2019-03-12 13:55] MED LIST changes: +ORPH100T PO; +TRAM50TA PO
[2019-03-12 14:27] VITALS: BP 131/82
--- NOTE | 2019-03-12 15:02 | PHYS DOC ---
Past Medical History Past Medical History: Bronchitis, GERD, Other Additional Past Medical Histor: heart murmur, lung "blood clots"; PE Past Surgical History: Alcohol Use: Occasionally Drug Use: None Adult General Chief Complaint Chief Complaint: HEADACHE HPI HPI Patient is a 33 year old female who presents with right side of head right behind the ear sharp stabbing pain that comes and goes eminently last 2 days. She states when it hits she can also hear a popping noise and he can make her feel lightheaded at times. She currently has 0 out of 10 pain. Denies fevers, back pain, neck pain, chest pain, shortness of air, nausea, vomiting, visual changes, numbness or tingling, weakness. Review of Systems Review of Systems Neurologic: Intermittent headache, denies focal weakness or sensory changes [] All other systems were reviewed and found to be within normal limits, except as documented in this note. Current Medications Current Medications Current Medications Medications (Trade) Dose Ordered Sig/Ryley Start Time Stop Time Status Last Admin Dose Admin Fentanyl Citrate (Fentanyl 2ml Vial) 50 mcg 1X ONCE 03/12/19 15:30 03/12/19 15:31 DC 03/12/19 15:51 50 MCG Orphenadrine Citrate (Norflex) 60 mg 1X ONCE 03/12/19 15:30 03/12/19 15:31 DC 03/12/19 15:51 60 MG Allergies Allergies Allergies Coded Allergies Type Severity Reaction Last Updated Verified No Known Drug Allergies 06/07/13 No Physical Exam Physical Exam Constitutional: Well developed, well nourished, no acute distress, non-toxic appearance. [] HENT: Normocephalic, atraumatic, bilateral external ears normal, oropharynx moist, no oral exudates, nose normal. [] Eyes: PERRLA, EOMI, conjunctiva normal, no discharge. [] Neck: Normal range of motion, no tenderness, supple, no stridor. [] Cardiovascular:Heart rate regular rhythm, no murmur [] Lungs & Thorax: Bilateral breath sounds clear to auscultation [] Abdomen: Bowel sounds normal, soft, no tenderness, no masses, no pulsatile masses. [] Skin: Warm, dry, no erythema, no rash. [] Back: No tenderness, no CVA tenderness. [] Extremities: No tenderness, no cyanosis, no clubbing, ROM intact, no edema. [] Neurologic: Alert and oriented X 3, normal motor function, normal sensory function, no focal deficits noted. [] Psychologic: Affect normal, judgement normal, mood normal. Normal Physical Exam[] Current Patient Data Vital Signs Vital Signs Date Time Temp Pulse Resp B/P (MAP) Pulse Ox O2 Delivery O2 Flow Rate FiO2 03/12/19 15:51 16 99 Room Air 03/12/19 14:27 98.3 83 131/82 (98) 98.3 Lab Values Laboratory Tests Test 03/12/19 15:24 POC Urine HCG, Qualitative Hcg negative (Negative) EKG EKG [] Radiology/Procedures Radiology/Procedures [] Impressions: [facility] [address] [place] [address] IMAGING REPORT Signed PATIENT: RUBENS XIONG ACCOUNT: [id number] : 1985 LOCATION: ER AGE: 33 SEX: F EXAM STATUS: REG ER ORD. PHYSICIAN: ANNMARIE NOVOA APRN REASON: head pain PROCEDURE: CT HEAD WO CONTRAST Exam: CT head INDICATION: Head pain TECHNIQUE: Sequential axial images through the head were obtained without the administration of IV contrast. Comparisons: None FINDINGS: No focal parenchymal lesion or hemorrhage is identified. There is no midline shift or sulcal effacement. No acute vascular territory infarction is identified. Balderrama-white distinction is preserved. The ventricular system is within normal limits without compression hydrocephalus. The basal cisterns are well maintained. The visualized portions of the paranasal sinuses and mastoid air cells are well-pneumatized. No acute fractures. IMPRESSION: No acute intracranial abnormality. Exposure: One or more of the following in the visualized dose reduction techniques were utilized for this examination: 1. Automated exposure control 2. Adjustment of the MA and/or KV according to patient size Use of iterative of reconstructive technique Electronically signed by: Sendy Braswell MD (03/12/2019 3:55 PM) [id number] DICTATED and SIGNED BY: SENDY BRASWELL MD DATE: 03/12/19 [id number] Course & Med Decision Making Course & Med Decision Making Alert and oriented. Ambulatory with a steady gait. Patient has fluid behind her eardrums and tympanic are white. Afebrile and vital signs are within normal limits. Full range of motion of her neck and no tenderness to her neck. No tenderness to her head. PERRLA. Patient states she has not taken any pain medications. No tenderness or swelling to her head or face or temporal areas. Patient denies any recent illnesses. Moves all extremities equally. Eyes any head injury. Patient states at times she will feel tightness in her neck on the right side. Patient calls out stating she is having pain a 10/10. Patient given fentanyl, orphenadrine, Decadron in the ED. CT shows no acute findings. Patient to follow- up with her primary care provider. I will send her home with orphenadrine and [place]. Williams Disclaimer Williams Disclaimer This electronic medical record was generated, in whole or in part, using a voice recognition dictation system. Departure Departure Impression: Primary Impression: Headache Disposition: HOME, SELF-CARE Condition: STABLE Referrals: NO PCP (PCP) Patient Instructions: General Headache Without Cause Additional Instructions: Follow up with primary care provider. Take medications as prescribed. Drink plenty of fluids. Scripts Orphenadrine Citrate (ORPHENADRINE CITRATE) 100 Mg Tablet.er 1 TAB PO BID, #20 TAB 1 Refill Prov: ANNMARIE NOVOA APRN 03/12/19 Hydrocodone/Apap 5-325 (NORCO 5-325 TABLET) 1 Each Tablet 1 TAB PO PRN Q6HRS PRN for PAIN, #10 TAB 0 Refills Prov: ANNMARIE NOVOA APRN 03/12/19 Problem Qualifiers Primary Impression: Headache Headache type: unspecified Headache chronicity pattern: acute headache Intractability: not intractable Qualified Codes: R51 - Headache ANNMARIE NOVOA APRN Mar 12, 2019 15:02
[2019-03-12] MEDS: ORPHENADRINE CITRATE 60 MG/2 ML VIAL. IM ONE (15:51)
[2019-03-12] MEDS: fentaNYL PF VIAL 100 MCG/2 ML VIAL IVP ONE (15:51)
--- NOTE | 2019-03-12 15:58 | RAD ---
Exam: CT head INDICATION: Head pain TECHNIQUE: Sequential axial images through the head were obtained without the administration of IV contrast. Comparisons: None FINDINGS: No focal parenchymal lesion or hemorrhage is identified. There is no midline shift or sulcal effacement. No acute vascular territory infarction is identified. Balderrama-white distinction is preserved. The ventricular system is within normal limits without compression hydrocephalus. The basal cisterns are well maintained. The visualized portions of the paranasal sinuses and mastoid air cells are well-pneumatized. No acute fractures. IMPRESSION: No acute intracranial abnormality. Exposure: One or more of the following in the visualized dose reduction techniques were utilized for this examination: 1. Automated exposure control 2. Adjustment of the MA and/or KV according to patient size Use of iterative of reconstructive technique Electronically signed by: Sendy Carter MD (03/12/2019 3:55 PM) [facility]
[2019-03-12] MEDS ORDERED: ORPH100T PO (16:10)
[2019-03-12] MEDS ORDERED: HYDR-3164 PO (16:10)
[2019-03-12] MEDS: DEXAMETHASONE SOD PHOS 20 MG/5 ML VIAL. IV ONE (16:14)
== END 2019-03-12 16:27 | disposition home or self-care (01) ==
LOC: ER 13:55
DX: R51 Headache (principal); R42 Dizziness and giddiness; K21.9 Gastro-esophageal reflux disease without esophagitis
CPT/HCPCS: 70450; 81025; 96372; 96374; 96375; 99285; J1100; J2360; J3010

== ENCOUNTER 2019-12-05 16:32 | Emergency (ER) | payer OTHER ==
[~2019-12-05] VITALS: Ht 165.1 cm; Wt 110.0 kg
[~2019-12-05 16:32] MED LIST changes: +HYDR-3164 PO; -MAGN2400 PO; +MAGN24003 PO
[2019-12-05 16:54] VITALS: BP 147/91
--- NOTE | 2019-12-05 16:56 | PHYS DOC ---
Past Medical History Past Medical History: Bronchitis, GERD, Other Additional Past Medical Histor: heart murmur, lung "blood clots"; PE (TARIK AREVALO DO) Past Surgical History: (TARIK AREVALO DO) Smoking Status: Current Every Day Smoker Alcohol Use: Occasionally Drug Use: None (TARIK AREVALO DO) General Adult EDM: Chief Complaint: FLANK PAIN HPI: HPI: Patient is a 34 year old female who presented to ER with complaint of right- sided flank pain that radiated to the groin area. Symptom has been going on for 3 days. Patient denies any injury. Patient denies any urinary frequency or urgency, no blood in her urine. Patient denies any nausea vomiting. Patient denies any cough or fever. (TARIK AREVALO DO) Review of Systems: Review of Systems: Constitutional: Denies fever or chills. [] Eyes: Denies change in visual acuity. [] HENT: Denies nasal congestion or sore throat. [] Respiratory: Denies cough or shortness of breath. [] Cardiovascular: Denies chest pain or edema. [] GI: Positive for right abdominal pain, no nausea, no vomiting. No diarrhea. : Denies dysuria. [] Musculoskeletal: Positive for low back pain, no joint pain. Integument: Denies rash. [] Neurologic: Denies headache, focal weakness or sensory changes. [] Endocrine: Denies polyuria or polydipsia. [] Lymphatic: Denies swollen glands. [] Psychiatric: Denies depression or anxiety. [] (TARIK AREVALO DO) Heart Score: Risk Factors: Risk Factors: DM, Current or recent (<one month) smoker, HTN, HLP, family history of CAD, obesity. Risk Scores: Score 0 - 3: 2.5% MACE over next 6 weeks - Discharge Home Score 4 - 6: 20.3% MACE over next 6 weeks - Admit for Clinical Observation Score 7 - 10: 72.7% MACE over next 6 weeks - Early Invasive Strategies (TARIK AREVALO DO) Current Medications: Current Medications Iohexol (Omnipaque 300 Mg/ml) 75 ml 1X ONCE IV Last administered on 12/05/19at 17:52; Start 12/05/19 at 18:00; Stop 12/05/19 at 18:01; Status DC Info (CONTRAST GIVEN -- Rx MONITORING) 1 each PRN DAILY PRN MC SEE COMMENTS; Start 12/05/19 at 18:00; Stop 12/07/19 at 17:59 Active Scripts Active Orphenadrine Citrate 100 Mg Tablet.er 1 Tab PO BID [place] 5-325 Tablet (Acetaminophen/Hydrocodone Bitart) 1 Each Tablet 1 Tab PO PRN Q6HRS PRN Orphenadrine Citrate 100 Mg Tablet.er 1 Tab PO BID PRN Tramadol Hcl 50 Mg Tablet 50 Mg PO Q6HRS PRN Prilosec Otc (Omeprazole Magnesium) 20 Mg Tablet.dr 2 Tab PO DAILY Pepcid (Famotidine) 20 Mg Tablet 20 Mg PO BID 30 Days Reglan (Metoclopramide Hcl) 10 Mg Tablet 1 Tab PO QID Flagyl (Metronidazole) 500 Mg Tablet 1 Tab PO BID Augmentin 875-125 Tablet (Amoxicillin/Potassium Clav) 1 Each Tablet 1 Tab PO BID Proair Hfa Inhaler (Albuterol Sulfate) 8.5 Gm Hfa.aer.ad 1 Puff INH PRN Q6HRS PRN 7 Days Guaifenesin-Codeine Syrup (Guaifenesin/Codeine Phosphate) 118 Ml Liquid 5 Ml PO Q6HRS Tessalon Perle (Benzonatate) 100 Mg Capsule 1 Cap PO TID Proair Respiclick (Albuterol Sulfate) 90 Mcg Aer.pow.ba 1 Puff IH PRN Q6HRS PRN Tessalon Perle (Benzonatate) 100 Mg Capsule 1 Cap PO TID Prednisone 50 Mg Tablet 1 Tab PO DAILY Dicyclomine Hcl 10 Mg Capsule 1 Cap PO TID PRN Naproxen 375 Mg Tablet 375 Mg PO BID Zofran Odt (Ondansetron) 4 Mg Tab.rapdis 1 Tab SL PRN Q8HRS PRN Cyclobenzaprine Hcl 10 Mg Tablet 1 Tab PO TID Tylenol With Codeine #3 Tablet (Acetaminophen/Codeine Phosphate) 1 Each Tablet 1 Tab PO PRN Q6HRS PRN Coumadin (Warfarin Sodium) 10 Mg Tablet 10 Mg PO DAILY16 Reported Advil (Ibuprofen) 200 Mg Tablet 200 Mg PO PRN Q6HRS PRN Aleve (Naproxen Sodium) 220 Mg Tablet 220 Mg PO PRN BID PRN Milk Of Magnesia (Magnesium Hydroxide) 2,400 Mg/10 Ml Oral.susp 2,400 Mg PO PRN DAILY PRN (NED GAUTAM MD) Allergies: Allergies: Allergies Coded Allergies Type Severity Reaction Last Updated Verified No Known Drug Allergies 06/07/13 No (TARIK AREVALO DO) Physical Exam: PE: Constitutional: Well developed, well nourished, no acute distress, non-toxic appearance. [] HENT: Normocephalic, atraumatic, bilateral external ears normal, oropharynx moist, no oral exudates, nose normal. [] Eyes: PERRLA, EOMI, conjunctiva normal, no discharge. [] Neck: Normal range of motion, no tenderness, supple, no stridor. [] Cardiovascular:Heart rate regular rhythm, no murmur [] Lungs & Thorax: Bilateral breath sounds clear to auscultation [] Abdomen: Bowel sounds normal, soft, There is right CVA TENDNERNESS, RLQ tenderness to palpation, no guarding, no masses, no pulsatile masses. [] Skin: Warm, dry, no erythema, no rash. [] Back: No tenderness, right CVA tenderness. [] Extremities: No tenderness, no cyanosis, no clubbing, ROM intact, no edema. [] Neurologic: Alert and oriented X 3, normal motor function, normal sensory function, no focal deficits noted. [] Psychologic: Affect normal, judgement normal, mood normal. [] (TARIK AREVALO DO) Current Patient Data: Labs: Laboratory Tests Test 12/05/19 16:45 12/05/19 16:49 12/05/19 17:00 Urine Collection Type Unknown Urine Color Yellow Urine Clarity Clear Urine pH 6.0 Urine Specific [place] 1.025 Urine Protein Negative mg/dL Urine Glucose (UA) Negative mg/dL Urine Ketones (Stick) Negative mg/dL Urine Blood Negative Urine Nitrite Negative Urine Bilirubin Negative Urine Urobilinogen Dipstick 1.0 mg/dL Urine Leukocyte Esterase Negative Urine RBC 1-2 /HPF Urine WBC Occ /HPF Urine Squamous Epithelial Cells Mod /LPF Urine Bacteria Few /HPF Urine Mucus Mod /LPF Bedside Urine HCG, Qualitative Hcg negative White Blood Count 10.0 x10^3/uL Red Blood Count 4.10 x10^6/uL Hemoglobin 12.1 g/dL Hematocrit 33.9 % Mean Corpuscular Volume 83 fL Mean Corpuscular Hemoglobin 30 pg Mean Corpuscular Hemoglobin Concent 36 g/dL Red Cell Distribution Width 13.5 % Platelet Count 417 x10^3/uL Neutrophils (%) (Auto) 55 % Lymphocytes (%) (Auto) 35 % Monocytes (%) (Auto) 8 % Eosinophils (%) (Auto) 1 % Basophils (%) (Auto) 1 % Neutrophils # (Auto) 5.5 x10^3/uL Lymphocytes # (Auto) 3.5 x10^3/uL Monocytes # (Auto) 0.8 x10^3/uL Eosinophils # (Auto) 0.1 x10^3/uL Basophils # (Auto) 0.1 x10^3/uL Sodium Level 144 mmol/L Potassium Level 3.6 mmol/L Chloride Level 106 mmol/L Carbon Dioxide Level 28 mmol/L Anion Gap 10 Blood Urea Nitrogen 11 mg/dL Creatinine 0.8 mg/dL Estimated GFR (Cockcroft-Gault) 100.0 BUN/Creatinine Ratio 14 Glucose Level 115 mg/dL Calcium Level 9.0 mg/dL Magnesium Level 1.9 mg/dL Total Bilirubin 0.5 mg/dL Aspartate Amino Transf (AST/SGOT) 15 U/L Alanine Aminotransferase (ALT/SGPT) 20 U/L Alkaline Phosphatase 62 U/L Total Protein 7.4 g/dL Albumin 3.7 g/dL Albumin/Globulin Ratio 1.0 Current Medications Medications (Trade) Dose Ordered Sig/Ryley Route PRN Reason Start Time Stop Time Status Last Admin Dose Admin Iohexol (Omnipaque 300 Mg/ml) 75 ml 1X ONCE IV 12/05/19 18:00 12/05/19 18:01 12/05/19 17:52 Info (CONTRAST GIVEN -- Rx MONITORING) 1 each PRN DAILY PRN MC SEE COMMENTS 12/05/19 18:00 12/07/19 17:59 Laboratory Tests Test 12/05/19 16:49 POC Urine HCG, Qualitative Hcg negative (Negative) (TARIK AREVALO DO) Labs: Laboratory Tests Test 12/05/19 16:45 12/05/19 16:49 12/05/19 17:00 Urine Collection Type Unknown Urine Color Yellow Urine Clarity Clear Urine pH 6.0 Urine Specific [place] 1.025 Urine Protein Negative mg/dL Urine Glucose (UA) Negative mg/dL Urine Ketones (Stick) Negative mg/dL Urine Blood Negative Urine Nitrite Negative Urine Bilirubin Negative Urine Urobilinogen Dipstick 1.0 mg/dL Urine Leukocyte Esterase Negative Urine RBC 1-2 /HPF Urine WBC Occ /HPF Urine Squamous Epithelial Cells Mod /LPF Urine Bacteria Few /HPF Urine Mucus Mod /LPF Bedside Urine HCG, Qualitative Hcg negative White Blood Count 10.0 x10^3/uL Red Blood Count 4.10 x10^6/uL Hemoglobin 12.1 g/dL Hematocrit 33.9 % Mean Corpuscular Volume 83 fL Mean Corpuscular Hemoglobin 30 pg Mean Corpuscular Hemoglobin Concent 36 g/dL Red Cell Distribution Width 13.5 % Platelet Count 417 x10^3/uL Neutrophils (%) (Auto) 55 % Lymphocytes (%) (Auto) 35 % Monocytes (%) (Auto) 8 % Eosinophils (%) (Auto) 1 % Basophils (%) (Auto) 1 % Neutrophils # (Auto) 5.5 x10^3/uL Lymphocytes # (Auto) 3.5 x10^3/uL Monocytes # (Auto) 0.8 x10^3/uL Eosinophils # (Auto) 0.1 x10^3/uL Basophils # (Auto) 0.1 x10^3/uL Sodium Level 144 mmol/L Potassium Level 3.6 mmol/L Chloride Level 106 mmol/L Carbon Dioxide Level 28 mmol/L Anion Gap 10 Blood Urea Nitrogen 11 mg/dL Creatinine 0.8 mg/dL Estimated GFR (Cockcroft-Gault) 100.0 BUN/Creatinine Ratio 14 Glucose Level 115 mg/dL Calcium Level 9.0 mg/dL Magnesium Level 1.9 mg/dL Total Bilirubin 0.5 mg/dL Aspartate Amino Transf (AST/SGOT) 15 U/L Alanine Aminotransferase (ALT/SGPT) 20 U/L Alkaline Phosphatase 62 U/L Total Protein 7.4 g/dL Albumin 3.7 g/dL Albumin/Globulin Ratio 1.0 Current Medications Medications (Trade) Dose Ordered Sig/Ryley Route PRN Reason Start Time Stop Time Status Last Admin Dose Admin Iohexol (Omnipaque 300 Mg/ml) 75 ml 1X ONCE IV 12/05/19 18:00 12/05/19 18:01 DC 12/05/19 17:52 Info (CONTRAST GIVEN -- Rx MONITORING) 1 each PRN DAILY PRN MC SEE COMMENTS 12/05/19 18:00 12/07/19 17:59 Vital Signs: Vital Signs Date Time Temp Pulse Resp B/P (MAP) Pulse Ox O2 Delivery O2 Flow Rate FiO2 12/05/19 16:54 98.2 88 18 147/91 (109) 98 Room Air 98.2 (NED GAUTAM MD) EKG: EKG: [] (TARIK AREVALO DO) Radiology/Procedures: Radiology/Procedures: [] (TARIK AREVALO DO) Radiology/Procedures: [facility] [address] [place] [address] IMAGING REPORT Signed PATIENT: RUBENS XIONG ACCOUNT: [id number] : 1985 LOCATION: ER AGE: 34 SEX: F EXAM STATUS: REG ER ORD. PHYSICIAN: TARIK AREVALO DO REASON: right side abdominal pain PROCEDURE: CT ABD PELV W/ IV CONTRST ONLY CT ABD PELV W/ IV CONTRST ONLY History: Reason: right side abdominal pain / Technique: After the administration of intravenous contrast, CT imaging was performed of the abdomen and pelvis. Multiplanar images are reviewed. Decrease intravascular contrast bolus due to leaking IV. Exposure: One or more of the following individualized dose reduction techniques were utilized for this examination: 1. Automated exposure control 2. Adjustment of the mA and/or kV according to patient size 3. Use of iterative reconstruction technique. Comparison: None Findings: Lower chest: No consolidation or pleural effusion. Abdomen and pelvis: The liver, spleen, adrenal glands, pancreas and gallbladder are unremarkable. No biliary ductal dilatation. Unremarkable appearance of the kidneys. No hydronephrosis. No renal calculi. Decompressed urinary bladder. Normal appendix. No evidence of bowel obstruction. Numerous small mesenteric lymph nodes. No pathologically enlarged lymph nodes. Unremarkable uterus and ovaries. No ascites. Bones: No pathologic osseous lesions. Impression: 1. No acute abdominal or pelvic pathology. Electronically signed by: Orlin Cottrell DO (12/05/2019 6:16 PM) [facility] DICTATED and SIGNED BY: ORLIN COTTRELL DO DATE: 12/05/19 181 (NED GAUTAM MD) Course & Med Decision Making: Course & Med Decision Making Pertinent Labs and Imaging studies reviewed. (See chart for details) Patient is a 33-year-old female presented to ER with right abdominal pain, no fever, no hematuria, no leukocytosis, CT scan of her abdomen pelvis is pending at this time, HER CARE WAS ENDORSED TO DR. GAUTAM AT [facility]. (TARIK AREVALO DO) Course & Med Decision Making 34-year-old female signed out to me by Dr. Arevalo with right side abdominal pain. Patient's work-up is reassuring. On my exam patient has a very soft abdomen with mild right-sided tenderness. Patient states she still has 8 out of 10 pain, we will give her some Toradol and that she will be stable for discharge. Return precautions given. (NED GAUTAM MD) Dragon Disclaimer: Dragon Disclaimer: This electronic medical record was generated, in whole or in part, using a voice recognition dictation system. (TARIK AREVALO DO) Departure Departure Impression: Primary Impression: Abdominal pain Additional Impression: Right sided abdominal pain Disposition: 01 DC HOME SELF CARE/HOMELESS Condition: STABLE Referrals: NO PCP (PCP) NED OLMEDO MD 2-3 days Patient Instructions: Abdominal Pain Additional Instructions: lEMERGENCY DEPARTMENT GENERAL DISCHARGE INSTRUCTIONS THANK YOU for coming to [facility] Emergency Department (ED) today and trusting us with your care. We trust that you had a positive experience in our Emergency Department. If you wish to speak to the department Management you can contact the repair department manager at . YOUR FOLLOW UP INSTRUCTIONS ARE FOLLOWS: Do you have a private doctor? If you do not have a private doctor, please ask for a resource list of physicians or clinics that may be able to assist you with follow up care. The Emergency Physician has interpreted your x-rays. The X-ray specialist will also review them. If there is a change in the findings you will be notified in 48 hours when at all possible. A lab test or lab culture may have been done, your results will be reviewed and you will be notified if you need a change in treatment. ADDITIONAL INSTRUCTIONS AND INFORMATION Your care today has been supervised by a physician who is specially trained in emergency care. Many problems require more than one evaluation for a complete diagnosis and treatment. We recommend that you schedule your follow up appointment as recommended to ensure complete treatment of your illness or injury. If you are unable to obtain follow up care and continue to have a problem, or if your condition worsens we recommend that you return to the ED. We are not able to safely determine your condition over the phone nor are we able to give sound medical advice over the phone. For these safety reasons, if you call for medical advice we will ask you to come to the ED for further evaluation If you have any questions regarding these discharge instructions please call the ED at . SAFETY INFORMATION In the interest of safety, wellness, and injury prevention; we encourage you to wear your seatbelt, if you smoke; quit smoking, and we encourage your family to use protective helmet for bicycling and other sporting events that present an increased risk for head injury. IF YOUR SYMPTOMS WORSEN OR NEW SYMPTOMS DEVELOP, OR YOU HAVE CONCERNS ABOUT YOUR CONDITION; OR IF YOUR CONDITION WORSENS WHILE YOU ARE WAITING FOR YOUR FOLLOW UP APPOINTMENT; EITHER CONTACT YOUR PRIMARY CARE DOCTOR, THE PHYSICIAN WHOSE NAME AND NUMBER YOU WERE GIVEN, OR RETURN TO THE ED IMMEDIATELY. Scripts Ondansetron (ONDANSETRON ODT) 4 Mg Tab.rapdis 1 TAB PO PRN Q6-8HRS PRN for NAUSEA, #15 TAB Prov: NED GAUTAM MD 12/05/19 Hyoscyamine Sulfate (LEVSIN-SL) 0.125 Mg Tab.subl 0.125 MG SL Q4-6HRS PRN for ABDOMINAL PAIN, #20 TAB Prov: NED GAUTAM MD 12/05/19 TARIK AREVALO DO Dec 05, 2019 16:56 NED GAUTAM MD Dec 05, 2019 18:26
[2019-12-05 17:04] LABS: BILIRUBIN,URINE NEGATIVE (NEG); CLARITY,URINE CLEAR; COLOR,URINE YELLOW; NITRITE,URINE NEGATIVE (NEG); PROTEIN,URINE NEGATIVE (NEG-TRACE)
[2019-12-05 17:15] LABS: BASO # 0.1 x10^3/uL (0.0-0.2); BASO % 1 % (0-3); EOS # 0.1 x10^3/uL (0.0-0.7); EOS % 1 % (0-3); HEMATOCRIT 33.9 % (36.0-47.0); HEMOGLOBIN 12.1 g/dL (12.0-15.5); LYMPH # 3.5 x10^3/uL (1.0-4.8); LYMPH % 35 % (24-48); MEAN CORPUSCULAR HEMOGLOBIN 30 pg (25-35); MEAN CORPUSCULAR HGB CONC 36 g/dL (31-37); MEAN CORPUSCULAR VOLUME 83 fL (79-100); MONO # 0.8 x10^3/uL (0.0-1.1); MONO % 8 % (0-9); NEUT # 5.5 x10^3/uL (1.8-7.7); NEUT % 55 % (31-73); PLATELET COUNT 417 x10^3/uL (140-400); RED CELL DISTRIBUTION WIDTH 13.5 % (11.5-14.5)
[2019-12-05 17:16] LABS: BACTERIA,URINE FEW /HPF (0-FEW); WBC,URINE OCC /HPF (0-4)
[2019-12-05 17:30] LABS: CREATININE 0.8 mg/dL (0.6-1.0); POTASSIUM 3.6 mmol/L (3.5-5.1)
[2019-12-05 17:37] LABS: ALBUMIN 3.7 g/dL (3.4-5.0); MAGNESIUM 1.9 mg/dL (1.8-2.4); TOTAL BILIRUBIN 0.5 mg/dL (0.2-1.0); TOTAL PROTEIN 7.4 g/dL (6.4-8.2)
[2019-12-05] MEDS ORDERED: IOHEXOL 300 MG/ML 100ML VIAL. IV ONE (18:00)
[2019-12-05] MEDS ORDERED: CONTRAST GIVEN. MC PRN (18:00)
--- NOTE | 2019-12-05 18:19 | RAD ---
CT ABD PELV W/ IV CONTRST ONLY History: Reason: right side abdominal pain / Technique: After the administration of intravenous contrast, CT imaging was performed of the abdomen and pelvis. Multiplanar images are reviewed. Decrease intravascular contrast bolus due to leaking IV. Exposure: One or more of the following individualized dose reduction techniques were utilized for this examination: 1. Automated exposure control 2. Adjustment of the mA and/or kV according to patient size 3. Use of iterative reconstruction technique. Comparison: None Findings: Lower chest: No consolidation or pleural effusion. Abdomen and pelvis: The liver, spleen, adrenal glands, pancreas and gallbladder are unremarkable. No biliary ductal dilatation. Unremarkable appearance of the kidneys. No hydronephrosis. No renal calculi. Decompressed urinary bladder. Normal appendix. No evidence of bowel obstruction. Numerous small mesenteric lymph nodes. No pathologically enlarged lymph nodes. Unremarkable uterus and ovaries. No ascites. Bones: No pathologic osseous lesions. Impression: 1. No acute abdominal or pelvic pathology. Electronically signed by: Orlin Cottrell DO (12/05/2019 6:16 PM) [facility]
[2019-12-05] MEDS ORDERED: KETOROLAC 15 MG/ML VIAL. IVP ONE (18:30)
[2019-12-05] MEDS ORDERED: ONDA4TAB12 PO (18:34)
[2019-12-05] MEDS ORDERED: HYOS0.1265 SL (18:34)
== END 2019-12-05 19:00 | disposition home or self-care (01) ==
LOC: ER 16:32
DX: R10.31 Right lower quadrant pain (principal); K21.9 Gastro-esophageal reflux disease without esophagitis; F17.200 Nicotine dependence, unspecified, uncomplicated
CPT/HCPCS: 36415; 74177; 80053; 81001; 81025; 83735; 85025; 96374; 99285; J1885; Q9967

== ENCOUNTER 2019-12-30 16:07 | Emergency (ER) | payer OTHER ==
[~2019-12-30] VITALS: Ht 165.1 cm; Wt 103.0 kg
[~2019-12-30 16:07] MED LIST changes: +HYOS0.1265 SL; +ONDA4TAB12 PO
--- NOTE | 2019-12-30 16:38 | PHYS DOC ---
Past Medical History Past Medical History: Bronchitis, GERD, Other Additional Past Medical Histor: heart murmur, lung "blood clots"; PE Past Surgical History: Smoking Status: Current Every Day Smoker Alcohol Use: Occasionally Drug Use: None General Adult EDM: Chief Complaint: ABDOMINAL PAIN HPI: HPI: Patient is a 34 year old female who presents with abdominal pain that started today. pt states that 7 years ago she had a similar pain. Pt was also here about 1 month ago for abdominal pain it was more in the back and sides. Today, the pain is located in the LRQ AND LLQ and radiates to the back. the pain is rated 8/10. It comes and goes and moving makes it worse. Heat makes it better. Pt denies any changes in diet or alcohol consumption. Pt has 3 children and her last menstrual period was the end of last month. Pt also states that she was told she had ovarian cysts many years ago and she is worried that this is the cause of the abdominal pain. Review of Systems: Review of Systems: Constitutional: Denies fever or chills Eyes: Denies redness or eye pain HENT: Denies nasal congestion or sore throat Respiratory: Denies cough or shortness of breath Cardiovascular: Denies chest pain or palpitations GI: Denies nausea or vomiting : Denies dysuria or hematuria Musculoskeletal: Denies back pain or joint pain Integument: Denies rash or skin lesions Neurologic: Denies headache, focal weakness or sensory changes Complete systems were reviewed and found to be within normal limits, except as documented in this note. Allergies: Allergies: Allergies Coded Allergies Type Severity Reaction Last Updated Verified No Known Drug Allergies 06/07/13 No Physical Exam: PE: Constitutional: Well developed, well nourished, no acute distress, non-toxic appearance HENT: Normocephalic, atraumatic Eyes: Conjunctiva normal, no discharge Neck: Normal range of motion, no tenderness, supple Lungs & Thorax: No respiratory distress, equal chest rise and fall Abdomen: Soft, TTP in RLQ and LLQ, no rebound tenderness, no tenderness on McBurney's point Skin: Warm, dry, no erythema, no rash Back: No tenderness, no CVA tenderness Extremities: No tenderness, ROM intact, no edema Neurologic: Alert and oriented X 3, normal motor function, normal sensory function, no focal deficits noted Psychologic: Affect normal, judgment normal Current Patient Data: Labs: Laboratory Tests Test 12/30/19 16:18 POC Urine HCG, Qualitative Hcg negative (Negative) EKG: EKG: [] Radiology/Procedures: Radiology/Procedures: [] Course & Med Decision Making: Course & Med Decision Making Pertinent Labs and Imaging studies reviewed. (See chart for details) 34 yo female pt presented with abdominal pain that started yesterday. Pt got a CT scan last month that showed no acute abdominal changes. Ordered a transvaginal ultrasound to investigate ovarian cysts. Dragon Disclaimer: Dragon Disclaimer: This electronic medical record was generated, in whole or in part, using a voice recognition dictation system. Departure Departure Impression: Primary Impression: Ovarian cyst Qualified Codes: N83.202 - Unspecified ovarian cyst, left side Disposition: DC HOME SELF CARE/HOMELESS Condition: STABLE Referrals: NO PCP (PCP) MARCIN GLOVER Jr, MD Patient Instructions: Ovarian Cyst Scripts Sennosides/Docusate Sodium (Colace 2-in-1 Tablet) 1 Each Tablet 1 TAB PO QHS for Constipation, #20 TAB 0 Refills Prov: JO ANN PERSAUD DO 12/30/19 Ondansetron (ONDANSETRON ODT) 4 Mg Tab.rapdis 1 TAB PO PRN Q6-8HRS PRN for NAUSEA, #16 TAB Prov: JO ANN PERSAUD DO 12/30/19 Hydrocodone/Apap 5-325 (NORCO 5-325 TABLET) 1 Each Tablet 0.5-1 TAB PO PRN Q6HRS PRN for PAIN, #10 TAB 0 Refills Prov: JO ANN PERSAUD DO 12/30/19 JO ANN PERSAUD DO Dec 30, 2019 16:38
[2019-12-30 16:51] LABS: BASO % 0 % (0-3); EOS # 0.1 x10^3/uL (0.0-0.7); EOS % 1 % (0-3); HEMATOCRIT 34.4 % (36.0-47.0); HEMOGLOBIN 12.2 g/dL (12.0-15.5); LYMPH # 3.5 x10^3/uL (1.0-4.8); LYMPH % 34 % (24-48); MEAN CORPUSCULAR HEMOGLOBIN 30 pg (25-35); MEAN CORPUSCULAR HGB CONC 36 g/dL (31-37); MEAN CORPUSCULAR VOLUME 84 fL (79-100); MONO # 0.9 x10^3/uL (0.0-1.1); MONO % 9 % (0-9); NEUT # 5.7 x10^3/uL (1.8-7.7); NEUT % 56 % (31-73); PLATELET COUNT 367 x10^3/uL (140-400); RED BLOOD COUNT 4.11 x10^6/uL (3.50-5.40); RED CELL DISTRIBUTION WIDTH 13.5 % (11.5-14.5); WHITE BLOOD COUNT 10.2 x10^3/uL (4.0-11.0)
[2019-12-30 16:55] LABS: BILIRUBIN,URINE NEGATIVE (NEG); CLARITY,URINE CLEAR; COLOR,URINE YELLOW; NITRITE,URINE NEGATIVE (NEG); PH,URINE 6.5 (<5.0-8.0); PROTEIN,URINE NEGATIVE (NEG-TRACE)
[2019-12-30] MEDS ORDERED: KETOROLAC 15 MG/ML VIAL. IVP ONE (17:00)
[2019-12-30] MEDS ORDERED: IV NORMAL SALINE 1000ML BAG 1,000 ML IV ONE (17:00)
[2019-12-30 17:05] LABS: BACTERIA,URINE FEW /HPF (0-FEW); WBC,URINE OCC /HPF (0-4)
[2019-12-30 17:13] LABS: CALCIUM 8.8 mg/dL (8.5-10.1); CREATININE 0.9 mg/dL (0.6-1.0); GFR 87.3; POTASSIUM 3.7 mmol/L (3.5-5.1)
[2019-12-30 17:18] LABS: ALBUMIN 3.5 g/dL (3.4-5.0); ALBUMIN/GLOBULIN RATIO 0.9 (1.0-1.7); TOTAL BILIRUBIN 0.2 mg/dL (0.2-1.0); TOTAL PROTEIN 7.3 g/dL (6.4-8.2)
[2019-12-30 17:45] VITALS: BP 135/88
[2019-12-30] MEDS ORDERED: HYDR-3164 PO (17:46)
[2019-12-30] MEDS ORDERED: ONDA4TAB12 PO (17:48)
[2019-12-30] MEDS ORDERED: SENN-121 PO (17:48)
--- NOTE | 2019-12-30 18:26 | RAD ---
EXAMINATION: PELVIS W/TV, 12/30/2019 4:41 PM CLINICAL INDICATION: Bilateral pelvic pain TECHNIQUE: Grayscale, color and spectral Doppler ultrasound images of the pelvis via transabdominal and transvaginal approach. COMPARISON: CT abdomen and pelvis 12-04 FINDINGS: The uterus measures 9.6 x 5.4 x 5.2 cm. The endometrial stripe measures 15 mm in thickness. The myometrium is heterogeneous in appearance without discrete mass. The right ovary measures 3.9 x 2.5 x 2.3 cm. There multiple small follicles in the right ovary. Normal right ovarian blood flow. The left ovary measures 5.7 x 4.8 x 2.4 cm. There is an anechoic complex septated cystic lesion measuring approximately 3.7 x 1.9 cm. This has a somewhat tubular appearance. No hyperemia. There is normal ovarian blood flow. Free fluid is seen in the pelvis. IMPRESSION: 1. Complex septated left ovarian cyst versus hydrosalpinx in the left adnexa. 2. Normal appearance of the right ovary. 3. Small amount of free fluid in the pelvis. Electronically signed by: Diane Taylor MD (12/30/2019 6:23 PM) [id number]
== END 2019-12-30 17:58 | disposition home or self-care (01) ==
LOC: ER 16:07
DX: N83.202 Unspecified ovarian cyst, left side (principal); K21.9 Gastro-esophageal reflux disease without esophagitis; F17.200 Nicotine dependence, unspecified, uncomplicated
CPT/HCPCS: 36415; 76830; 76856; 80053; 81001; 81025; 83690; 85025; 96361; 96374; 99284; J1885; J7030

== ENCOUNTER → 2020-02-06 | Outpatient (CLI) | payer OTHER ==
[~2020-02-06] MED LIST changes: +SENN-121 PO
--- NOTE | 2020-02-06 18:47 | RAD ---
EXAM: Pelvic sonogram. HISTORY: Abnormal bleeding. Pain. TECHNIQUE: Transabdominal and transvaginal sonographic imaging of the pelvis was performed. COMPARISON: 12/30/2019. FINDINGS: The uterus measures 8.7 x 5.4 x 4.7 cm. The endometrial stripe measures 11 mm in thickness. There is a large left adnexal cyst measuring 6.9 x 4.6 x 3.0 cm. This is likely ovarian in etiology. This is simple in appearance. There are small right ovarian follicles. There is normal blood flow wi thin both ovaries. There is no pelvic free fluid. IMPRESSION: 1. 6.9 cm left adnexal cyst, likely ovarian in etiology. This is simple in appearance. The complex cy stic or fluid-filled structure within the left adnexa on the prior study measuring 3.7 cm is not seen on this exam. 2. Otherwise, unremarkable pelvic sonogram. Electronically signed by: Neyda Wong MD (02/06/2020 6:44 PM) [facility]
== END ==
LOC: US 14:51
PROVIDERS: ATTEND Obstetrics & Gynecology
DX: N93.9 Abnormal uterine and vaginal bleeding, unspecified (principal)
CPT/HCPCS: 76830; 76856

== ENCOUNTER → 2020-02-19 | Outpatient (CLI) | payer OTHER ==
[~2020-02-19] MED LIST changes: +OXYC-325 PO
== END ==
LOC: LAB 11:55
PROVIDERS: ATTEND Obstetrics & Gynecology
DX: Z01.812 Encounter for preprocedural laboratory examination (principal); Z20.828 Contact with and (suspected) exposure to other viral communicable diseases
CPT/HCPCS: U0003

== ENCOUNTER 2020-02-24 07:00 | Day surgery (SDC) | payer OTHER ==
[~2020-02-24] VITALS: Ht 167.6 cm; Wt 114.3 kg
[~2020-02-24 07:00] MED LIST changes: +DEXAMETHASONE SOD PHOS 4 MG/ML VIAL ONE; +HYDROmorphone 2 MG/ML VIAL IV PRN; +LIDOCAINE 1% PF 2 ML VIAL. ID PRN; +LIDOCAINE 2% PF 5 ML VIAL. ONE; +MORPHINE SULFATE 2 MG/ML VIAL. IV PRN; +ONDANSETRON PF 4 MG/2 ML VIAL. IV PRN; +ONDANSETRON PF 4 MG/2 ML VIAL. ONE; -OXYC-325 PO; +PROCHLORPERAZINE 10 MG/2 ML VIAL. IV PRN; +PROPOFOL 10 MG/ML (20ML) VIAL. IV ONE; +ROCURONIUM 50 MG/5 ML VIAL. ONE; +fentaNYL PF VIAL 100 MCG/2 ML VIAL IV PRN
[2020-02-24] MEDS: IV RINGERS,LACTATED 1000ML 1,000 ML IV SCH ×2 (07:32→10:22)
[2020-02-24] MEDS ORDERED: SURGICEL HEMOSTAT 4X8 EACH. ONE (07:36)
[2020-02-24] MEDS ORDERED: BUPIVACAINE-EPI 0.25%-1:200000 MPF 30 ML VIAL. INJ ONE (07:45)
[2020-02-24] MEDS ORDERED: MIDAZOLAM HCL/PF 2 MG/2 ML VIAL. ONE (08:11)
[2020-02-24] MEDS ORDERED: fentaNYL PF VIAL 100 MCG/2 ML VIAL ONE ×2 (08:11→10:18)
[2020-02-24] MEDS ORDERED: SUCCINYLCHOLINE 200 MG/10 ML VIAL. ONE (08:38)
[2020-02-24] MEDS ORDERED: NEOSTIGMINE METHYLSULFATE 5 MG/5 ML SYRINGE. ONE (09:45)
[2020-02-24] MEDS ORDERED: GLYCOPYRROLATE 1 MG/5 ML VIAL. ONE (09:45)
--- NOTE | 2020-02-24 09:52 | PDOC ---
BRIEF OPERATIVE NOTE Date: Feb 24, 2020 Pre-Op Diagnosis RISA Cyst Post-Op Diagnosis Same Procedure Performed [facility] Cystectomy Surgeon Dr. Plata Anesthesia Type: General Blood Loss 5 ml Specimens Obtained RISA Cyst wal Findings RISA cyst 7 cm size, nml fallopian tubes gi., nml ROV, nml size uterus Complications none Operative Note see dictation MARCIN PLATA Jr, MD Feb 24, 2020 09:52
--- NOTE | 2020-02-24 09:53 | DISCH ---
DISCHARGE INSTRUCTIONS Condition on Discharge Condition on Discharge: Stable Activity After Discharge Activity Instructions for Disc: Activity as tolerated Lifting Instructions after Dis: No heavy lifting Driving Instructions after Dis: Do not drive today Diet after Discharge Diet after Discharge: Regular Contacting the DRPatricia after DC Call your doctor for: Concerns you may have Follow-Up Follow up with: Dr. Plata in 1 week MARCIN PLATA Jr, MD Feb 24, 2020 09:53
[2020-02-24] MEDS ORDERED: SEVOFLURANE 61 TO 120 MINUTES. IH ONE (10:05)
--- NOTE | 2020-02-24 10:06 | OP ---
DATE OF SURGERY: 02/24/2020 PREOPERATIVE DIAGNOSIS: Left ovarian cyst. POSTOPERATIVE DIAGNOSIS: Left ovarian cyst. PROCEDURE: Laparoscopic left ovarian cystectomy. SURGEON: Manuel Plata MD ANESTHESIA: GETA. ESTIMATED BLOOD LOSS: 5 mL. COMPLICATIONS: None. FINDINGS: Left ovarian cyst 7 cm size, normal fallopian tubes bilaterally, normal right ovary, normal size uterus. SUMMARY: A 34-year-old female with left ovarian cyst that had grown from 3.5 cm to 7 cm in size. The patient was counseled on risks, benefits and expectations of laparoscopic left ovarian cystectomy and voiced clear understanding to proceed. DESCRIPTION OF PROCEDURE: The patient was taken to surgery suite and placed in dorsal lithotomy position. She was prepped with Betadine solution for vaginal prep and ChloraPrep for abdominal prep. After adequate anesthesia, bivalve speculum was placed vaginally. Anterior lip of the cervix grasped with single tooth tenaculum. Uterine acorn manipulator was then placed. The bivalve speculum was removed. Attention was now placed on abdomen. Small transverse skin incision was made 3 fingerbreadths below the left rib margin with a scalpel. Veress needle was then placed. The abdomen was allowed to insufflate up to 1-1/2 liters CO2 gas. The Veress needle was then removed. A 5 mm trocar was placed. Scope was positioned. Uterus was normal size. There were some adhesions in the left pelvic sidewall. An incision was made just below the umbilicus with a scalpel and a 5 mm trocar was placed. Another incision was made in the left lower quadrant in which an 11 mm trocar was placed. With aid of graspers and the EndoShears, the left ovarian cyst was incised and drained with suction irrigation. A portion of the left ovarian cyst wall was excised using EndoShears. The remaining left ovarian cyst wall was fulgurated using monopolar cautery. The area was hemostatic. Suction irrigation was utilized to verify good hemostasis. A small amount of normal saline was left in posterior cul-de-sac. The trocars were then removed under direct visualization. The abdomen was allowed to deflate as much as possible along with mechanical manipulation. The 11 mm port site was closed at the fascial layer using 2-0 Vicryl suture in a [id number]-[id number] manner. The three skin incisions were closed at the skin level using 4-0 Vicryl suture in a subcuticular manner. A 0.25% Marcaine with epinephrine was injected at each incision site. Uterine acorn manipulator and single tooth tenaculum were removed. The patient tolerated the procedure well and was taken to recovery room in stable condition. Sponge and needle count correct x 3. MANUEL PLATA MD DR: SOBIA/una JOB#: [id number] / [id number]
[2020-02-24] MEDS: fentaNYL PF VIAL 100 MCG/2 ML VIAL IV PRN ×2 (10:21→10:44)
[2020-02-24] MEDS ORDERED: OXYC-325 PO (10:36)
[2020-02-24] MEDS ORDERED: oxyCODONE/APAP 5/325 1 TAB TABLET PO ONE ×2 (10:45)
[2020-02-24 11:25] VITALS: BP 123/73
--- NOTE | 2020-02-28 18:48 | PATHOLOGY ---
[facility] Accession Number: [id number] . 01 Material submitted: . ovary - LEFT OVARIAN CYST WALL. Modifiers: left . 01 Clinical history: . LEFT OVARIAN CYST . 02 Diagnosis: Segments of ovarian tissue, left ovarian cyst wall: - Follicular cyst with regressive changes. ([facility] 02/28/2020) [facility] 02/28/2020 0928 Local . 02 Comment: There is no atypia or evidence of malignancy. ([facility] 02/28/2020) . 02 Electronically signed: . Guillermo Akers MD, Pathologist NPI- [id number] . 01 Gross description: . The specimen is received in formalin, labeled "Niharika Green, left ovarian cyst wall". Received are multiple segments of pale joyner to cabezas-joyner membranous tissue measuring 2.9 x 1.0 x 0.5 cm in aggregate dimensions. The specimen is submitted entirely in cassette A1. ([facility]; 02/27/2020) [facility] 02/27/2020 1053 Local . 02 Pathologist provided ICD-10: N83.02 . 02 CPT . 664578 Specimen Comment: A courtesy copy of this report has been sent to [phone] Specimen Comment: Report sent to Performed at: [facility] [address], [place] [id number] MD Hans Marie MD Phone: [phone] Performed at: 02 [facility] [address] [place], [place] [id number] MD Guillermo Akers MD Phone: [phone]
== END 2020-02-24 11:55 | disposition home or self-care (01) ==
LOC: SURG 07:00
PROVIDERS: ATTEND Obstetrics & Gynecology
DX: N83.202 Unspecified ovarian cyst, left side (principal); E66.9 Obesity, unspecified; K21.9 Gastro-esophageal reflux disease without esophagitis; F41.9 Anxiety disorder, unspecified; F17.210 Nicotine dependence, cigarettes, uncomplicated; Z79.899 Other long term (current) drug therapy; Z72.89 Other problems related to lifestyle; Z98.890 Other specified postprocedural states; Z68.41 Body mass index [BMI] 40.0-44.9, adult
CPT/HCPCS: 58662; 81025; J0330; J0690; J1100; J2405; J2704; J2710; J3010; J3490; J7120; 88304; J2250

== ENCOUNTER 2020-09-22 20:30 | Emergency (ER) | payer OTHER ==
[~2020-09-22] VITALS: Ht 167.6 cm; Wt 114.0 kg
[~2020-09-22 20:30] MED LIST changes: -DEXAMETHASONE SOD PHOS 4 MG/ML VIAL ONE; -HYDROmorphone 2 MG/ML VIAL IV PRN; -LIDOCAINE 1% PF 2 ML VIAL. ID PRN; -LIDOCAINE 2% PF 5 ML VIAL. ONE; -MORPHINE SULFATE 2 MG/ML VIAL. IV PRN; -ONDANSETRON PF 4 MG/2 ML VIAL. IV PRN; -ONDANSETRON PF 4 MG/2 ML VIAL. ONE; +OXYC-325 PO; -PROCHLORPERAZINE 10 MG/2 ML VIAL. IV PRN; -PROPOFOL 10 MG/ML (20ML) VIAL. IV ONE; -ROCURONIUM 50 MG/5 ML VIAL. ONE; -fentaNYL PF VIAL 100 MCG/2 ML VIAL IV PRN
[2020-09-22] MEDS ORDERED: NAPROXEN 500 MG TABLET PO ONE (22:00)
[2020-09-22 22:29] VITALS: BP 122/87
--- NOTE | 2020-09-22 22:33 | RAD ---
XR FOOT_RIGHT 3 VIEWS History: Pain. Technique: 3 views right foot Comparison: None. Findings: Normal alignment. No acute fracture. Impression: 1. No acute osseous abnormality. Electronically signed by: Orlin Cottrell DO (09/22/2020 10:30 PM) [place]
[2020-09-22] MEDS ORDERED: NAPR-514 PO (22:55)
--- NOTE | 2020-09-22 22:55 | ED.ADGEN ---
Past Medical History Past Medical History: Bronchitis, GERD, Other Additional Past Medical Histor: heart murmur, lung "blood clots"; PE Past Surgical History: Smoking Status: Current Every Day Smoker Alcohol Use: Occasionally Drug Use: None General Adult EDM: Chief Complaint: LOWER EXT PAIN HPI: HPI: Patient is a 35 year old AA female who presents emergency department with complaints of pain in the dorsal surface of her proximal right foot with weightbearing and movement for the last 2 months. She denies any injury or trauma. Patient denies any swelling, redness, or warmth. She states that the pain gets better with rest but will soon as she bears weight the pain becomes severe. She denies any pain in her heel or complaint on sugars of her foot. She currently rates pain a 9 out of 10 on the pain scale, she denies any alleviating factors other than rest. Review of Systems: Review of Systems: Complete ROS is negative unless otherwise noted in the HPI. Current Medications: Current Medications Medications (Trade) Dose Ordered Sig/Ryley Start Time Stop Time Status Last Admin Dose Admin Naproxen (Naprosyn) 500 mg 1X ONCE 09/22/20 22:00 09/22/20 22:01 DC 09/22/20 22:06 500 MG Allergies: Allergies: Allergies Coded Allergies Type Severity Reaction Last Updated Verified No Known Drug Allergies 02/18/20 No Physical Exam: PE: See above Constitutional: Well developed, well nourished, no acute distress, non-toxic appearance, obese. [] HENT: Normocephalic, atraumatic, bilateral external ears normal, nose normal. [] Eyes: PERRLA, EOMI, conjunctiva normal, no discharge. [] Neck: Normal range of motion, no stridor. [] Cardiovascular:Heart rate regular rhythm Lungs & Thorax: Respirations even and unlabored, no retractions, no respiratory distress Skin: Warm, dry, no erythema, no rash. [] Extremities: Right foot: Tenderness to palpation of the dorsal surface proximal to the third metatarsal, no crepitus, no obvious deformity, no erythema, no edema, 2+ pedal and posterior tibial pulses, no cyanosis, ROM intact Neurologic: Alert and oriented X 3, normal motor, normal sensory no focal deficits noted. [] Psychologic: Affect normal, judgement normal, mood normal. [] Current Patient Data: Vital Signs: Vital Signs Date Time Temp Pulse Resp B/P (MAP) Pulse Ox O2 Delivery O2 Flow Rate FiO2 09/22/20 22:29 98.4 89 16 122/87 (99) 98 Room Air 98.4 EKG: EKG: [] Heart Score: C/O Chest Pain: No Radiology/Procedures: Radiology/Procedures: PROCEDURE: FOOT RIGHT 3V XR FOOT_RIGHT 3 VIEWS History: Pain. Technique: 3 views right foot Comparison: None. Findings: Normal alignment. No acute fracture. Impression: 1. No acute osseous abnormality. Electronically signed by: Orlin Cottrell DO (09/22/2020 10:30 PM) [facility] [] Course & Med Decision Making: Course & Med Decision Making Pertinent Labs and Imaging studies reviewed. (See chart for details) [] Dragon Disclaimer: Dragon Disclaimer: This electronic medical record was generated, in whole or in part, using a voice recognition dictation system. Departure Departure Impression: Primary Impression: Pain, foot, right, chronic Disposition: 01 HOME / SELF CARE / HOMELESS Condition: STABLE Referrals: ELLIOTT YUSUF DPM Patient Instructions: Foot Sprain-Brief Additional Instructions: Fill prescription(s) and use as directed. Recommend application of ice, elevation, and rest of affected extremity. Wear the postop shoe that was placed until follow up appointment, Follow up with Dr. Yusuf, call in the morning to schedule an appointment. Return to the ER if your symptoms worsen. Scripts Naproxen (NAPROXEN) 500 Mg Tablet 1 TAB PO BID PRN for PAIN for 10 Days, #20 TAB 0 Refills Prov: JASPREET MONTAÑO CITRIX LEAD 09/22/20 JASPREET MONTAÑO CIT[employer]X LEAD Sep 22, 2020 22:55
== END 2020-09-22 23:15 | disposition home or self-care (01) ==
LOC: ER 20:30
DX: M79.671 Pain in right foot (principal); G89.29 Other chronic pain; K21.9 Gastro-esophageal reflux disease without esophagitis; F17.200 Nicotine dependence, unspecified, uncomplicated
CPT/HCPCS: 73630; 99283

== ENCOUNTER 2021-02-01 16:15 | Emergency (ER) | payer OTHER ==
[~2021-02-01] VITALS: Ht 167.6 cm; Wt 113.6 kg
[~2021-02-01 16:15] MED LIST changes: +CYCL10TA19 PO; -CYCL10TA2 PO; +NAPR-514 PO
--- NOTE | 2021-02-01 22:42 | PHYS DOC ---
Past Medical History Past Medical History: Bronchitis, GERD, Other Additional Past Medical Histor: heart murmur, lung "blood clots"; PE Past Surgical History: , Other Additional Past Surgical Histo: CYST REMOVED FROM OVARY Smoking Status: Current Every Day Smoker Alcohol Use: Occasionally Drug Use: None General Adult EDM: Chief Complaint: ABDOMINAL PAIN HPI: HPI: Patient is a 35 year old female who presents with periumbilical and generalized mid abdominal pain, which began around 3 PM today. No focal abdominal pain reported. No nausea, vomiting, anorexia reported. The patient reports that she feels hungry. She denies fevers or chills. She denies chest pain or dyspnea. She denies pelvic or lower abdominal pain. She denies urinary symptoms. She denies constipation, diarrhea, melena, hematochezia. LMP within the last month. She has previously undergone ovarian cyst removal, no other abdominal surgeries. No previous history of abdominal adhesions reported, no previous history of bowel obstruction reported. She reports that she already feels better from when the pain began, and she reports that she would really like to go home and eat some food. She is worried that perhaps an ovarian cyst recurred and is causing her pain. Review of Systems: Review of Systems: Constitutional: Denies fever or chills. [] Eyes: Denies change in visual acuity. [] HENT: Denies nasal congestion or sore throat. [] Respiratory: Denies cough or shortness of breath. [] Cardiovascular: Denies chest pain or edema. [] GI: Abdominal pain. Denies nausea, vomiting, diarrhea, constipation, melena, hematochezia : Denies dysuria, denies vaginal discharge or bleeding. Denies pelvic pain. Denies any urinary symptoms. Musculoskeletal: Denies back pain or joint pain. [] Integument: Denies rash. [] Neurologic: Denies headache, focal weakness or sensory changes. [] Psychiatric: Denies depression or anxiety. [] Heart Score: C/O Chest Pain: No Risk Factors: Risk Factors: DM, Current or recent (<one month) smoker, HTN, HLP, family history of CAD, obesity. Risk Scores: Score 0 - 3: 2.5% MACE over next 6 weeks - Discharge Home Score 4 - 6: 20.3% MACE over next 6 weeks - Admit for Clinical Observation Score 7 - 10: 72.7% MACE over next 6 weeks - Early Invasive Strategies Allergies: Allergies: Allergies Coded Allergies Type Severity Reaction Last Updated Verified No Known Drug Allergies 02/18/20 No Physical Exam: PE: Constitutional: Well developed, well nourished, no acute distress, non-toxic appearance. [] HENT: Normocephalic, atraumatic Eyes: Sclera are clear and anicteric Neck: Normal range of motion, no tenderness, supple, no stridor. Trachea is midline Cardiovascular:Heart rate regular rhythm, 2 radial and +2 dorsalis pedis pulses bilaterally Lungs & Thorax: Bilateral breath sounds clear to auscultation [] Abdomen: Abdomen is obese, soft, nondistended, I am unable to elicit any tenderness at all, no rebound, no guarding, normal bowel sounds, no palpable masses organomegaly, no CVA tenderness, no palpable pulsatile mass, no flank or abdominal ecchymoses Skin: Warm, dry, no erythema, no rash. No jaundice. Back: No tenderness, no CVA tenderness. [] Extremities: No tenderness, no cyanosis, no clubbing, ROM intact, no edema. No calf tenderness. Neurologic: Alert and oriented X 3, normal motor function, normal sensory function, no focal deficits noted. [] Psychologic: Affect normal, judgement normal, mood normal. She is pleasant cooperative. [] Current Patient Data: Vital Signs: Vital Signs Date Time Temp Pulse Resp B/P (MAP) Pulse Ox O2 Delivery O2 Flow Rate FiO2 02/01/21 21:58 98.0 74 20 133/88 (103) 99 Room Air 98.0 EKG: EKG: [] Radiology/Procedures: Radiology/Procedures: IMAGING REPORT Signed PATIENT: RUBENS XIONG ACCOUNT: [id number] : 1985 LOCATION: ER AGE: 35 SEX: F EXAM STATUS: REG ER ORD. PHYSICIAN: SHERICE RIZZO DO REASON: abdominal pain;OMNI 300, 75ML PROCEDURE: CT ABD PELV W/ IV CONTRST ONLY CT ABDOMEN+PELVIS W History: abdominal pain Comparison: 12/05/2019. Technique: After administration of intravenous contrast, helical CT of the abdomen and pelvis was performed from the lung bases through the ischial tuberosities. Coronal and sagittal reconstructions were obtained. 75 mL of Omnipaque 300 were used. One or more of the following dose reduction techniques were utilized: Automated exposure control (AEC), Adjustment of mA and/or kV according to patient size, Use of iterative reconstruction technique such as ASiR, CT scan done according to ALARA and image gently/image wisely Abdomen Findings: The visualized lung bases are clear. The liver, gallbladder, pancreas, spleen, and bilateral adrenal glands are normal. Symmetric renal enhancement. There is no focal renal mass. There is no hydronephrosis. The visualized loops of small bowel are normal. The visualized loops of large bowel are normal. There is no evidence of bowel obstruction. Appendix is normal in caliber. There is no free fluid. There is no mesenteric or retroperitoneal adenopathy. The abdominal aorta is normal in caliber. Pelvis Findings: Urinary bladder is normal. Uterus is present. No pelvic free fluid. There is no pelvic or inguinal adenopathy. There is no acute bony abnormality. IMPRESSION: No acute findings. Electronically signed by: Greer Shafer MD (02/02/2021 1:49 AM) [facility] DICTATED and SIGNED BY: GREER SHAFER MD DATE: 02/02/21 [id number] 0 Course & Med Decision Making: Course & Med Decision Making Pertinent Labs and Imaging studies reviewed. (See chart for details) The patient is given IV fluids and IV fentanyl. She has a benign, nonsurgical abdominal exam. Emergency department work-up is unremarkable for any acute life-threatening or surgical process. I have discussed all the findings, differential diagnosis and plan of care with the patient. No current indication for further imaging, invasive exams or admission at this time, based on current clinical presentation. Strict return precautions are given. She verbalized understanding. Williams Disclaimer: Williams Disclaimer: This electronic medical record was generated, in whole or in part, using a voice recognition dictation system. Departure Departure Impression: Primary Impression: Generalized abdominal pain Disposition: HOME / SELF CARE / HOMELESS Condition: STABLE Referrals: NO PCP (PCP) Patient Instructions: Abdominal Pain (Nonspecific) Additional Instructions: Return to the ER for more localized or focal abdominal pain, especially right lower quadrant abdominal pain, if you develop temperature 100.4 or higher, uncontrolled vomiting, dehydration or for any other concerns. You may take the pain medicine as needed for severe pain. Make sure to eat a bland diet, stay well-hydrated. If your symptoms persist, you should follow-up with your primary care physician and also consider outpatient GI referral. Scripts Hydrocodone Bit/Acetaminophen (HYDROCODONE-APAP 5-325 ) 1 Tab Tablet 1 TAB PO PRN Q6HRS PRN for PAIN, #8 TAB 0 Refills Prov: SHERICE RIZZO DO 02/02/21 SHERICE RIZZO DO Feb 01, 2021 22:42
[2021-02-01 22:59] LABS: BASO # 0.1 x10^3/uL (0.0-0.2); BASO % 1 % (0-3); EOS # 0.1 x10^3/uL (0.0-0.7); EOS % 1 % (0-3); HEMATOCRIT 37.5 % (36.0-47.0); LYMPH # 5.5 x10^3/uL (1.0-4.8); LYMPH % 43 % (24-48); MEAN CORPUSCULAR HEMOGLOBIN 29 pg (25-35); MEAN CORPUSCULAR HGB CONC 35 g/dL (31-37); MEAN CORPUSCULAR VOLUME 84 fL (79-100); MONO # 1.1 x10^3/uL (0.0-1.1); MONO % 8 % (0-9); NEUT # 6.2 x10^3/uL (1.8-7.7); NEUT % 48 % (31-73); PLATELET COUNT 424 x10^3/uL (140-400); RED BLOOD COUNT 4.45 x10^6/uL (3.50-5.40); RED CELL DISTRIBUTION WIDTH 13.8 % (11.5-14.5); WHITE BLOOD COUNT 12.9 x10^3/uL (4.0-11.0)
[2021-02-01] MEDS ORDERED: fentaNYL PF VIAL 100 MCG/2 ML VIAL IVP ONE (23:00)
[2021-02-01] MEDS ORDERED: IV NORMAL SALINE 1000ML BAG 1,000 ML IV ONE (23:00)
[2021-02-01 23:11] LABS: CALCIUM 9.1 mg/dL (8.5-10.1); CREATININE 0.7 mg/dL (0.6-1.0); GFR 115.9; POTASSIUM 4.1 mmol/L (3.5-5.1)
[2021-02-01 23:16] LABS: ALBUMIN 3.8 g/dL (3.4-5.0); ALBUMIN/GLOBULIN RATIO 0.8 (1.0-1.7); TOTAL BILIRUBIN 0.3 mg/dL (0.2-1.0); TOTAL PROTEIN 8.4 g/dL (6.4-8.2)
[2021-02-02 01:05] LABS: PREG TEST PT QUAL NEGATIVE (NEG)
[2021-02-02 01:06] LABS: BILIRUBIN,URINE NEGATIVE (NEG); CLARITY,URINE CLEAR; COLOR,URINE YELLOW; NITRITE,URINE NEGATIVE (NEG); PROTEIN,URINE NEGATIVE (NEG-TRACE); UROBILINOGEN,URINE 0.2 mg/dL (0.2 mg/dL)
[2021-02-02 01:12] LABS: AMORPHOUS SEDIMENT,UR PRESENT /HPF; BACTERIA,URINE FEW /HPF (0-FEW); RBC,URINE OCC /HPF (0-2)
[2021-02-02] MEDS ORDERED: IOHEXOL 300 MG/ML 100ML VIAL. IV ONE (01:15)
[2021-02-02] MEDS ORDERED: CONTRAST GIVEN. MC PRN (01:30)
--- NOTE | 2021-02-02 01:51 | RAD ---
CT ABDOMEN+PELVIS W History: abdominal pain Comparison: 12/05/2019. Technique: After administration of intravenous contrast, helical CT of the abdomen and pelvis was per formed from the lung bases through the ischial tuberosities. Coronal and sagittal reconstructions wer e obtained. 75 mL of Omnipaque 300 were used. One or more of the following dose reduction techniques were utilized: Automated exposure control (AEC), Adjustment of mA and/or kV according to patient size , Use of iterative reconstruction technique such as ASiR, CT scan done according to ALARA and image g ently/image wisely Abdomen Findings: The visualized lung bases are clear. The liver, gallbladder, pancreas, spleen, and bilateral adrenal glands are normal. Symmetric renal enhancement. There is no focal renal mass. There is no hydronephrosis. The visualized loops of small bowel are normal. The visualized loops of large bowel are normal. There is no evidence of bowel obstruction. Appendix is normal in caliber. There is no free fluid. There is no mesenteric or retroperitoneal adenopathy. The abdominal aorta is normal in caliber. Pelvis Findings: Urinary bladder is normal. Uterus is present. No pelvic free fluid. There is no pelvic or inguinal ad enopathy. There is no acute bony abnormality. IMPRESSION: No acute findings. Electronically signed by: Osman Singleton MD (02/02/2021 1:49 AM) [facility]
[2021-02-02] MEDS ORDERED: HYDR-2761 PO (02:00)
[2021-02-02 02:15] VITALS: BP 116/81
== END 2021-02-02 02:23 | disposition home or self-care (01) ==
LOC: ER 16:15
DX: R10.84 Generalized abdominal pain (principal); R10.33 Periumbilical pain; K21.9 Gastro-esophageal reflux disease without esophagitis; F17.200 Nicotine dependence, unspecified, uncomplicated
CPT/HCPCS: 36415; 74177; 80053; 81001; 81025; 83690; 84703; 85025; 96361; 96374; 99285; J3010; J7030; Q9967

== ENCOUNTER 2021-04-02 13:15 | Emergency (ER) | payer OTHER ==
[~2021-04-02] VITALS: Ht 167.6 cm; Wt 111.8 kg
[~2021-04-02 13:15] MED LIST changes: +HYDR-2761 PO
[2021-04-02] MEDS ORDERED: IV NORMAL SALINE 1000ML BAG 1,000 ML IV ONE (14:00)
--- NOTE | 2021-04-02 14:11 | PHYS DOC ---
Past Medical History Past Medical History: Bronchitis, GERD, Other Additional Past Medical Histor: P.E. Past Surgical History: No Surgical History Additional Past Surgical Histo: CYST REMOVED FROM OVARY Smoking Status: Current Some Day Smoker Alcohol Use: Occasionally Drug Use: None General Adult EDM: Chief Complaint: COUGH HPI: HPI: Patient is a 35-year-old -[place] female who presents to the emergency department for multiple complaints. Patient presents with a yellow productive cough that started 2 days ago. She reports generalized chest wall pain with coughing only. She denies chest pain at rest. She also denies fevers, shortnes s of breath, sick exposures, nausea, vomiting, diarrhea. She is also reporting left wrist/forearm swelling. She reports that this started on Monday. She denies any injury, bite, rash, itching, new exposures. Patient reports that on Monday she hit her ring on a door and then after that event she started feeling dizzy and having blurred vision. Patient reports that she drove her cousin to drop her off at her home and continued to have blurred vision while she was driving. She reports that when she got back to her home she had an episode of near syncope. Patient denies any head trauma. Patient reports that her blurred vision and dizziness lasted from Monday to Monday and has resolved. Patient denies any of the symptoms currently. Patient does have a history of pulmonary embolisms. Review of Systems: Review of Systems: Constitutional: negative unless reported in HPI Eyes: negative unless reported in HPI HENT: negative unless reported in HPI Respiratory: negative unless reported in HPI Cardiovascular: negative unless reported in HPI GI: negative unless reported in HPI : negative unless reported in HPI Musculoskeletal: negative unless reported in HPI Integument: negative unless reported in HPI Neurologic: negative unless reported in HPI Endocrine: negative unless reported in HPI Lymphatic: negative unless reported in HPI Psychiatric: negative unless reported in HPI Heart Score: C/O Chest Pain: No Risk Factors: Risk Factors: DM, Current or recent (<one month) smoker, HTN, HLP, family history of CAD, obesity. Risk Scores: Score 0 - 3: 2.5% MACE over next 6 weeks - Discharge Home Score 4 - 6: 20.3% MACE over next 6 weeks - Admit for Clinical Observation Score 7 - 10: 72.7% MACE over next 6 weeks - Early Invasive Strategies Current Medications: Current Medications Medications (Trade) Dose Ordered Sig/Ryley Start Time Stop Time Status Last Admin Dose Admin Sodium Chloride 1,000 ml @ 1,000 mls/hr 1X ONCE 04/02/21 14:00 04/02/21 14:59 Allergies: Allergies: Allergies Coded Allergies Type Severity Reaction Last Updated Verified No Known Drug Allergies 02/18/20 No Physical Exam: PE: Constitutional: Well developed, well nourished, no acute distress, non-toxic appearance. [] HENT: Normocephalic, atraumatic, bilateral external ears normal, oropharynx moist, no oral exudates, nose normal. [] Eyes: PERRL, 4 mm pupils bilaterally, EOMI, conjunctiva normal, no discharge. [] Neck: Normal range of motion, no tenderness, supple, no stridor. [] Cardiovascular:Heart rate regular rhythm, no murmur [] Lungs & Thorax: Bilateral breath sounds clear to auscultation [] Abdomen: Bowel sounds normal, soft, no tenderness, no masses, obese, no pulsatile masses. [] Skin: Warm, dry, no erythema, no rash. [] Back: No tenderness, normal range of motion Extremities: No tenderness, no cyanosis, no clubbing, ROM intact, no edema. Left forearm: Patient has a localized area of swelling noted to the dorsal aspect of her left wrist, there is no swelling noted to her entire upper extremity or forearm, no wounds, no bite aranda or signs of an insect bite, no rash, there is no obvious deformity, no redness/warmth/drainage, tenderness with palpation to area, range of motion intact, neuro intact [] Neurologic: Alert and oriented X 3, normal motor function, normal sensory function, no focal deficits noted, no pronator drift, no limb ataxia, no slurred speech, no aphasia, patient moving all 4 extremities equally, equal strength bilateral upper and lower extremities. [] Psychologic: Affect normal, judgement normal, mood normal. [] Current Patient Data: Labs: Laboratory Tests Test 04/02/21 14:20 04/02/21 14:40 04/02/21 14:53 White Blood Count 9.4 x10^3/uL Red Blood Count 3.72 x10^6/uL Hemoglobin 10.8 g/dL Hematocrit 30.9 % Mean Corpuscular Volume 83 fL Mean Corpuscular Hemoglobin 29 pg Mean Corpuscular Hemoglobin Concent 35 g/dL Red Cell Distribution Width 13.7 % Platelet Count 437 x10^3/uL Neutrophils (%) (Auto) 50 % Lymphocytes (%) (Auto) 39 % Monocytes (%) (Auto) 9 % Eosinophils (%) (Auto) 1 % Basophils (%) (Auto) 1 % Neutrophils # (Auto) 4.7 x10^3/uL Lymphocytes # (Auto) 3.7 x10^3/uL Monocytes # (Auto) 0.8 x10^3/uL Eosinophils # (Auto) 0.1 x10^3/uL Basophils # (Auto) 0.1 x10^3/uL Sodium Level 144 mmol/L Potassium Level 4.2 mmol/L Chloride Level 108 mmol/L Carbon Dioxide Level 25 mmol/L Anion Gap 11 Blood Urea Nitrogen 10 mg/dL Creatinine 0.7 mg/dL Estimated GFR (Cockcroft-Gault) 115.9 BUN/Creatinine Ratio 14 Glucose Level 115 mg/dL Calcium Level 8.4 mg/dL Total Bilirubin 0.4 mg/dL Aspartate Amino Transf (AST/SGOT) 16 U/L Alanine Aminotransferase (ALT/SGPT) 23 U/L Alkaline Phosphatase 66 U/L Troponin I High Sensitivity 10 ng/L Total Protein 6.8 g/dL Albumin 3.3 g/dL Albumin/Globulin Ratio 0.9 Influenza Type A Antigen Negative Influenza Type B Antigen Negative SARS-CoV-2 Antigen (Rapid) Negative Bedside Urine HCG, Qualitative Hcg negative Current Medications Medications (Trade) Dose Ordered Sig/Ryley Route PRN Reason Start Time Stop Time Status Last Admin Dose Admin Sodium Chloride 1,000 ml @ 1,000 mls/hr 1X ONCE IV 04/02/21 14:00 04/02/21 14:59 DC 04/02/21 14:16 Iohexol (Omnipaque 350 Mg/ml) 100 ml 1X ONCE IV 04/02/21 15:15 04/02/21 15:16 DC 04/02/21 15:17 Info (CONTRAST GIVEN -- Rx MONITORING) 1 each PRN DAILY PRN MC SEE COMMENTS 04/02/21 15:15 04/04/21 15:14 Vital Signs: Vital Signs Date Time Temp Pulse Resp B/P (MAP) Pulse Ox O2 Delivery O2 Flow Rate FiO2 04/02/21 13:34 98.4 79 16 126/69 (88) 99 98.4 EKG: EKG: [] Radiology/Procedures: Radiology/Procedures: []PROCEDURE: CT ANGIOGRAPHY CHEST Examination: CT angiography chest with IV contrast HISTORY: History of near syncope COMPARISON: 02/07/2018 TECHNIQUE: Axial CT angiographic images of chest were performed with IV contrast. Coronal and sagittal 3-D MIP reformats are performed Exposure: One or more of the following individualized dose reduction techniques were utilized for this examination: 1. Automated exposure control 2. Adjustment of the mA and/or kV according to patient size 3. Use of iterative reconstruction technique FINDINGS: The central airways are patent. The caliber of the aorta grossly appears unremarkable. No radiologically significant mediastinal lymphadenopathy. No evidence of filling defect identified in the main pulmonary arterial trunk and right and left main pulmonary arteries and visualized lobar, segmental branches of pulmonary arteries. Mild paraseptal emphysematous changes bilateral lungs. 6 mm nodule left lower lobe abutting the pleura. The liver, spleen, adrenals grossly appears unremarkable No evidence of lytic bony destructive lesion. IMPRESSION: 1. No evidence of pulmonary embolism. 2. 6 mm nodule left lower lobe of the lung. Per Fleischner Society guidelines for incidentally found solid nodule measuring 6-8 mm, initial CT follow-up is recommended in 6-12 months. Additional follow-up can be considered in 18-24 month based on risk factors. Electronically signed by: Gary Butterfield MD (04/02/2021 3:39 PM) [id number] DICTATED and SIGNED BY: GARY BUTTERFIELD MD DATE: 04/02/21 [id number] ROCEDURE: CT HEAD WO CONTRAST CT HEAD WITHOUT CONTRAST 04/02/2021 3:08 PM Indication: Reason: dizziness, near syncope / Spl. Instructions: / History: Comparison: CT of the head March 12, 2019 Procedure: Multidetector CT imaging of the head was performed without the administration of contrast. Findings: There is no evidence of acute intracranial hemorrhage. There is no evidence of acute territorial infarction. Please note that CT is limited for evaluation of acute ischemia. No mass effect or midline shift is identified . The ventricles and basilar cisterns have an appropriate appearance. No abnormal extra-axial fluid collections are seen. No acute osseous changes are identified. Impression: No evidence of acute intracranial abnormality CT DOSING PQRS STATEMENT: One or more of the following individualized dose reduction techniques were utilized for this examination: 1. Automated exposure control 2. Adjustment of the mA and/or kV according to patient size 3. Use of iterative reconstruction technique Electronically signed by: Emory Odom MD (04/02/2021 3:34 PM) [id number] DICTATED and SIGNED BY: EMORY ODOM MD DATE: 04/02/21 [id number] PROCEDURE: WRIST 2V LEFT 2 views left wrist 04/02/2021 1:54 PM Indication: Reason: pui, productive cough / Comparison: None Findings: There is no acute fracture or dislocation. Articular surfaces are uninterupted and smooth. Soft tissues are unremarkable. Impression: No evidence of acute osseous abnormality. Electronically signed by: Emory Odom MD (04/02/2021 2:17 PM) [id number] DICTATED and SIGNED BY: EMORY ODOM MD DATE: 04/02/21 [id number] Course & Med Decision Making: Course & Med Decision Making Pertinent Labs and Imaging studies reviewed. (See chart for details) [] Patient presents to the emergency department for multiple complaints. She is complaining of a yellow productive cough that started 2 days ago with chest wall pain only with coughing. He denies any chest pain, shortness of breath. She will be tested for COVID-19, influenza. Patient is also reporting swelling to her left wrist, she does deny any injury to her wrist but reports that she did hit her ring on a door. Therefore, an x- ray will be performed. Patient does have a history of pulmonary embolisms and due to her symptoms of near syncope and dizziness I am concerned for a pulmonary embolism. Therefore, work-up in the ER will also consist of blood work, EKG and CT scan of chest. Patient is reporting near syncope, intermittent blurred vision and dizziness that started on Monday and has resolved on Monday. Therefore, imaging will be performed of patient's head. Patient will be treated with a liter of normal saline. blood work was unremarkable. She is noted to have mild anemia and is advised to follow-up with her primary care provider regarding that. Patient's wrist x-ray did not show any acute findings. Head CT and chest CT were negative. Patient does have a nodule noted on her chest CT, she was given a printout of her report and advised to follow-up with her primary care provider with three imaging per radiology recommendations. Patient will be discharged home with cough medication. She is advised to take anti-inflammatory medications for her pain. Educated on ice and elevation for swelling. I discussed with patient all findings and diagnostic testing as well as the need to follow-up with PCP for further evaluation and treatment or return to the ER if any new or worsening symptoms. Strict return precautions were also discussed at length. Patient voiced understanding and agreement with the plan. Patient is hemodynamically stable at the time of disposition. Dragon Disclaimer: [employer]idyard Disclaimer: This electronic medical record was generated, in whole or in part, using a voice recognition dictation system. Departure Departure Impression: Primary Impression: Person under investigation for COVID-19 Additional Impression: Cough Disposition: HOME / SELF CARE / HOMELESS Condition: GOOD Referrals: NO PCP (PCP) Patient Instructions: Cough, Adult Additional Instructions: You were seen in the emergency department today for multiple complaints. Your blood work was unremarkable. We tested you for COVID-19 you will be notified of those results when they become available in approximately 2 days. Please self isolate until you receive these results. You were noted to have mild anemia in which you need to follow-up with your primary care provider regarding. Imaging of your wrist and head showed no acute findings. The CT scan of your chest did not show any pulmonary embolism but you do have a nodule in your lung in which you need to follow-up with your primary care provider regarding because you may need reimaging. You are being discharged home with cough medication that you can take as needed. For any pain or fevers take Tylenol and/or ibuprofen. Use ice and elevation to help with your swelling. Follow-up with your primary care provider tomorrow regarding your ER visit. Return to the emergency department if you develop worsening of your symptoms, shortness of breath, chest pain, intractable nausea or vomiting, high fevers refractory to treatment, syncope, dizziness, vision changes, inability to ambulate or any new or worsening concerns. Scripts Benzonatate (BENZONATATE) 100 Mg Capsule 1 CAP PO TID for 7 Days, #21 CAP 0 Refills Prov: DAVID GARCIA APRN 04/02/21 DAVID GARCIA APRN Apr 02, 2021 14:11
--- NOTE | 2021-04-02 14:19 | RAD ---
2 views left wrist 04/02/2021 1:54 PM Indication: Reason: pui, productive cough / Comparison: None Findings: There is no acute fracture or dislocation. Articular surfaces are uninterupted and smooth. Soft tissues are unremarkable. Impression: No evidence of acute osseous abnormality. Electronically signed by: Emory Ballard MD (04/02/2021 2:17 PM) [id number]
[2021-04-02 14:28] LABS: BASO # 0.1 x10^3/uL (0.0-0.2); BASO % 1 % (0-3); EOS # 0.1 x10^3/uL (0.0-0.7); EOS % 1 % (0-3); HEMATOCRIT 30.9 % (36.0-47.0); HEMOGLOBIN 10.8 g/dL (12.0-15.5); LYMPH # 3.7 x10^3/uL (1.0-4.8); LYMPH % 39 % (24-48); MEAN CORPUSCULAR HEMOGLOBIN 29 pg (25-35); MEAN CORPUSCULAR HGB CONC 35 g/dL (31-37); MEAN CORPUSCULAR VOLUME 83 fL (79-100); MONO # 0.8 x10^3/uL (0.0-1.1); MONO % 9 % (0-9); NEUT # 4.7 x10^3/uL (1.8-7.7); NEUT % 50 % (31-73); PLATELET COUNT 437 x10^3/uL (140-400); RED BLOOD COUNT 3.72 x10^6/uL (3.50-5.40); RED CELL DISTRIBUTION WIDTH 13.7 % (11.5-14.5); WHITE BLOOD COUNT 9.4 x10^3/uL (4.0-11.0)
[2021-04-02 14:37] LABS: CALCIUM 8.4 mg/dL (8.5-10.1); CREATININE 0.7 mg/dL (0.6-1.0); GFR 115.9; POTASSIUM 4.2 mmol/L (3.5-5.1)
[2021-04-02 14:47] LABS: ALBUMIN 3.3 g/dL (3.4-5.0); ALBUMIN/GLOBULIN RATIO 0.9 (1.0-1.7); TOTAL BILIRUBIN 0.4 mg/dL (0.2-1.0); TOTAL PROTEIN 6.8 g/dL (6.4-8.2)
[2021-04-02 15:12] LABS: INFLUENZA A PATIENT NEGATIVE (NEGATIVE); INFLUENZA B PATIENT NEGATIVE (NEGATIVE)
[2021-04-02] MEDS ORDERED: IOHEXOL 350 MG/ML 100 ML VIAL. IV ONE (15:15)
[2021-04-02] MEDS ORDERED: CONTRAST GIVEN. MC PRN (15:15)
[2021-04-02 15:26] VITALS: BP 141/73
--- NOTE | 2021-04-02 15:36 | RAD ---
CT HEAD WITHOUT CONTRAST 04/02/2021 3:08 PM Indication: Reason: dizziness, near syncope / Spl. Instructions: / History: Comparison: CT of the head March 12, 2019 Procedure: Multidetector CT imaging of the head was performed without the administration of contrast. Findings: There is no evidence of acute intracranial hemorrhage. There is no evidence of acute territ orial infarction. Please note that CT is limited for evaluation of acute ischemia. No mass effect or midline shift is identified . The ventricles and basilar cisterns have an appropriate appearance. No abnormal extra-axial fluid collections are seen. No acute osseous changes are identified. Impression: No evidence of acute intracranial abnormality CT DOSING PQRS STATEMENT: One or more of the following individualized dose reduction techniques were utilized for this examinat ion: 1. Automated exposure control 2. Adjustment of the mA and/or kV according to patient size 3. Use of iterative reconstruction technique Electronically signed by: Emory Ballard MD (04/02/2021 3:34 PM) [id number]
--- NOTE | 2021-04-02 15:41 | RAD ---
Examination: CT angiography chest with IV contrast HISTORY: History of near syncope COMPARISON: 02/07/2018 TECHNIQUE: Axial CT angiographic images of chest were performed with IV contrast. Coronal and sagitta l 3-D MIP reformats are performed Exposure: One or more of the following individualized dose reduction techniques were utilized for thi s examination: 1. Automated exposure control 2. Adjustment of the mA and/or kV according to patient size 3. Use of iterative reconstruction technique FINDINGS: The central airways are patent. The caliber of the aorta grossly appears unremarkable. No radiologica lly significant mediastinal lymphadenopathy. No evidence of filling defect identified in the main pul monary arterial trunk and right and left main pulmonary arteries and visualized lobar, segmental bran ches of pulmonary arteries. Mild paraseptal emphysematous changes bilateral lungs. 6 mm nodule left l ower lobe abutting the pleura. The liver, spleen, adrenals grossly appears unremarkable No evidence of lytic bony destructive lesion. IMPRESSION: 1. No evidence of pulmonary embolism. 2. 6 mm nodule left lower lobe of the lung. Per Fleischner Society guidelines for incidentally found solid nodule measuring 6-8 mm, initial CT follow-up is recommended in 6-12 months. Additional follow -up can be considered in 18-24 month based on risk factors. Electronically signed by: Gary Butterfield MD (04/02/2021 3:39 PM) [id number]
[2021-04-02] MEDS ORDERED: BENZ-8 PO (15:49)
--- NOTE | 2021-04-03 02:29 | EKG ---
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
--- NOTE | 2021-04-03 13:55 | NUR ---
IP: Informed pt of negative covid test. she verbalized understanding.
== END 2021-04-02 16:23 | disposition home or self-care (01) ==
LOC: ER 13:15
DX: R05.9 Cough, unspecified (principal); R07.89 Other chest pain; M25.532 Pain in left wrist; Z20.822 Contact with and (suspected) exposure to COVID-19; K21.9 Gastro-esophageal reflux disease without esophagitis; F17.200 Nicotine dependence, unspecified, uncomplicated
CPT/HCPCS: 36415; 70450; 71275; 73100; 80053; 81025; 84484; 85025; 87428; 93005; 96360; 96361; 99285; C9803; J7030; Q9967; U0003